=== PATIENT | female | born 1990 | race Two or more races ===

== ENCOUNTER 2017-07-24 19:04 | Emergency (ER) | payer OTHER ==
[2017-07-24] MEDS ORDERED: MORPHINE SULFATE 10 MG/ML INJ IV ONE ×3 (20:18→23:36)
[2017-07-24] MEDS ORDERED: NORMAL SALINE 1000 ML 1,000 ML IV PRN (20:18)
[2017-07-24] MEDS ORDERED: ONDANSETRON HCL INJ/PF 4 MG/2 ML SDV IV ONE ×2 (20:18→23:36)
--- NOTE | 2017-07-24 20:20 | ER Document Report ---
ED Medical Screen (RME) - General Chief Complaint: Shortness Of Breath Stated Complaint: SHORTNESS OF BREATH/HIP AND BACK PAIN Time Seen by Provider: 07/24/17 20:17 Notes: Patient states that approximately 2 weeks ago she was diagnosed in [place] with an upper respiratory infection and tonsillitis. She was started on inhalers antibiotics (Augmentin) and steroids. She states she still has a very sore throat, a hoarse voice and this morning started to feel short of breath. Patient also states that this morning when she woke up she had severe right flank pain that radiates around to the right abdomen. It is worse with any type of movement. She denies any urinary or vaginal symptoms. Denies any knowledge of being . Denies any known history of trauma. TRAVEL OUTSIDE OF THE [place] IN LAST 30 DAYS: No Past Medical History - Social History Chew tobacco use (# tins/day): No Frequency of alcohol use: Occasional Drug Abuse: None Renal/ Medical History: Denies: Hx Peritoneal Dialysis Physical Exam - Vital signs Vitals: Temp Pulse Resp BP Pulse Ox 99.1 F 99 24 H 144/96 H 95 07/24/17 19:06 07/24/17 19:06 07/24/17 19:06 07/24/17 19:06 07/24/17 19:06 Course - Vital Signs Vital signs: Temp Pulse Resp BP Pulse Ox 99.1 F 99 24 H 144/96 H 95 07/24/17 19:06 07/24/17 19:06 07/24/17 19:06 07/24/17 19:06 07/24/17 19:06
[2017-07-24 20:51] LABS: ABSOLUTE LYMPHOCYTES (AUTO) 1.6 10^3/uL (0.5-4.7); ABSOLUTE MONOCYTES (AUTO) 0.4 10^3/uL (0.1-1.4); ABSOLUTE NEUT (AUTO) 9.5 10^3/uL (1.7-8.2); BASOPHILS % (AUTO) 0.3 % (0-2); EOSINOPHILS % (AUTO) 0.2 % (0-6); LYMPHOCYTES % (AUTO) 14.1 % (13-45); MEAN CORPUSCULAR HEMOGLOBIN 28.5 pg (27.0-33.4); MEAN CORPUSCULAR HGB CONC 34.2 g/dL (32.0-36.0); MEAN CORPUSCULAR VOLUME 83 fl (80-97); MONOCYTES % (AUTO) 3.7 % (3-13); RED BLOOD COUNT 4.56 10^6/uL (3.72-5.28); RED CELL DISTRIBUTION WIDTH 15.7 % (11.5-14.0); SEGMENTED NEUTROPHILS % (AUTO) 81.7 % (42-78); WHITE BLOOD COUNT 11.7 10^3/uL (4.0-10.5)
--- NOTE | 2017-07-24 20:57 | RADIOLOGY REPORT (SQ) ---
EXAM DESCRIPTION: CHEST PA/LAT COMPLETED DATE/TIME: 07/24/2017 8:48 pm REASON FOR STUDY: sob COMPARISON: None. EXAM PARAMETERS: NUMBER OF VIEWS: two views TECHNIQUE: Digital Frontal and Lateral radiographic views of the chest acquired. RADIATION DOSE: NA LIMITATIONS: none FINDINGS: LUNGS AND PLEURA: No opacities, masses or pneumothorax. No pleural effusion. MEDIASTINUM AND HILAR STRUCTURES: No masses or contour abnormalities. HEART AND VASCULAR STRUCTURES: Heart normal size. No evidence for failure. BONES: No acute findings. HARDWARE: None in the chest. OTHER: No other significant finding. IMPRESSION: NO SIGNIFICANT RADIOGRAPHIC FINDING IN THE CHEST. TECHNICAL DOCUMENTATION: JOB ID: [id number] [employer]- All Rights Reserved
[2017-07-24 21:03] LABS: ALANINE AMINOTRANSFERASE 82 U/L (9-52); ALBUMIN 4.9 g/dL (3.5-5.0); ALKALINE PHOSPHATASE 106 U/L (38-126); ANION GAP 16 (5-19); ASPARTATE AMINO TRANSFERASE 71 U/L (14-36); BILIRUBIN,DIRECT 0.3 mg/dL (0.0-0.4); BLOOD UREA NITROGEN 15 mg/dL (7-20); CALCIUM 9.5 mg/dL (8.4-10.2); CARBON DIOXIDE 22 mmol/L (22-30); CHLORIDE 104 mmol/L (98-107); CREATININE RESULT 0.58 mg/dL (0.52-1.25); GLUCOSE 144 mg/dL (75-110); POTASSIUM 4.2 mmol/L (3.6-5.0); SODIUM 142.2 mmol/L (137-145); TOTAL PROTEIN 8.1 g/dL (6.3-8.2)
[2017-07-24] MEDS ORDERED: KETOROLAC TROMETHAMINE INJ/PF 30 MG/1 ML SDV IV ONE (21:49)
--- NOTE | 2017-07-24 21:49 | ER Document Report ---
ED GI/ - General Mode of Arrival: Ambulatory Information source: Patient TRAVEL OUTSIDE OF THE [place] IN LAST 30 DAYS: No <JERALD TNOY - Last Filed: 07/24/17 22:38> <CYNDI PALMA - Last Filed: 07/24/17 23:36> - General Chief Complaint: Shortness Of Breath Stated Complaint: SHORTNESS OF BREATH/HIP AND BACK PAIN Time Seen by Provider: 07/24/17 20:17 Notes: Patient is a 27-year-old female that presents to the emergency department today with complaints of right flank pain that began this morning. Patient states the pain radiates to her right lower quadrant. Patient was seen last week in [facility] for a cold and was prescribed antibiotics. Patient complains of still having a cough, sore throat, and hoarse voice. (JERALD TONY) - Related Data Allergies/Adverse Reactions: No Known Allergies Allergy (Unverified 07/24/17 22:37) Past Medical History - General Information source: Patient - Social History Smoking Status: Never Smoker Cigarette use (# per day): No Chew tobacco use (# tins/day): No Frequency of alcohol use: Occasional Drug Abuse: None Lives with: Family Family History: Reviewed & Not Pertinent Patient has suicidal ideation: No Patient has homicidal ideation: No Surgical Hx: Negative <JERALD TONY - Last Filed: 07/24/17 22:38> Review of Systems - Review of Systems Constitutional: No symptoms reported EENT: See HPI, Other - hoarse voice Cardiovascular: No symptoms reported Respiratory: See HPI, Cough Gastrointestinal: No symptoms reported Genitourinary: See HPI, Flank pain - right Female Genitourinary: No symptoms reported Musculoskeletal: No symptoms reported Skin: No symptoms reported Hematologic/Lymphatic: No symptoms reported Neurological/Psychological: No symptoms reported -: Yes All other systems reviewed and negative <JERALD TONY - Last Filed: 07/24/17 22:38> Physical Exam <JERALD TONY - Last Filed: 07/24/17 22:38> <CYNDI PALMA - Last Filed: 07/24/17 23:36> - Vital signs Vitals: Temp Pulse Resp BP Pulse Ox 99.1 F 99 24 H 144/96 H 95 07/24/17 19:06 07/24/17 19:06 07/24/17 19:06 07/24/17 19:06 07/24/17 19:06 - Notes Notes: Physical Exam: General: Alert, appears uncomfortable. HEENT: Normocephalic. Atraumatic. PERRL. Extraocular movements intact. Oropharynx clear. Cryptic tonsils, no exudate. Anterior cervical lymphadenopathy. Neck: Supple. Non-tender. Respiratory: No respiratory distress. Clear and equal breath sounds bilaterally. Cardiovascular: Regular rate and rhythm. Abdominal: Obese. Non-tender. No distension. Normal Bowel Sounds. Back: Right CVA tenderness with percussion. No back musculature tendernress. No deformity or step off. Extremities: Moves all four extremities. Upper extremities: Normal inspection. Normal ROM. Lower extremities: Normal inspection. No edema. Normal ROM. Neurological: Normal cognition. AAOx4. Normal speech. Psychological: Normal affect. Normal Mood. Skin: Warm. Dry. Normal color. (JERALD TONY) Course - Laboratory Result Diagrams: 07/24/17 20:31 07/24/17 20:31 <JERALD TONY - Last Filed: 07/24/17 22:38> - Laboratory Result Diagrams: 07/24/17 20:31 07/24/17 20:31 - Diagnostic Test Radiology reviewed: Image reviewed, Reports reviewed - 2.3 mm right UVJ stone with obstruction. <CYNDI PALMA - Last Filed: 07/24/17 23:36> - Re-evaluation Re-evalutation: 07/24/17 23:35 The patient does have a right UVJ stone with obstruction, she states she has a urologist she sees at [facility] and actually has an appointment with her in the near future. (CYNDI PALMA) - Vital Signs Vital signs: Temp Pulse Resp BP Pulse Ox 99.1 F 99 24 H 144/96 H 95 07/24/17 19:06 07/24/17 19:06 07/24/17 19:06 07/24/17 19:06 07/24/17 19:06 - Laboratory Laboratory results interpreted by me: 07/24/17 07/24/17 20:31 20:31 WBC 11.7 H RDW 15.7 H Seg Neutrophils % 81.7 H Absolute Neutrophils 9.5 H Glucose 144 H AST 71 H ALT 82 H Discharge <JERALD TONY - Last Filed: 07/24/17 22:38> <CYNDI PALMA - Last Filed: 07/24/17 23:36> - Discharge Clinical Impression: Ureteral stone with hydronephrosis, Ureterovesical junction (UVJ) obstruction, Viral upper respiratory tract infection with cough, Laryngitis, Sore throat ( viral) Condition: Stable Disposition: HOME, SELF-CARE Additional Instructions: Kidney Stone You are passing a kidney stone. These stones are usually due to increased calcium or uric acid concentrations in your urine. Stones within the kidney itself are not painful. The pain occurs as the stone leaves the kidney to pass down the long tube, called the ureter, leading to the bladder. If the stone is small, it will usually pass by itself. Most patients can pass the stone at home. You will usually receive medications for pain, nausea or vomiting, and sometimes a medication to assist in passing the kidney stone. However, if the pain is very severe or if vomiting prevents you from taking oral pain medications, you may need to return for further treatment. Drink three or four quarts of fluids per day. You will be given pain medication (if needed) and urine strainers. Strain all your urine to see if the stone passes. If your doctor has asked you to bring the stone in for analysis, return with the stone once it has passed. Return if pain or vomiting become severe, if you develop a high fever, if you are unable to pass your urine, or if other unusual symptoms occur. Upper Respiratory Illness: You have a viral infection of the respiratory passages -- a "cold." This common infection causes nasal congestion, drainage, and often sore throat and cough. It is caused by a virus and is highly contagious. The disease usually lasts a week or more, though the worst symptoms are usually over in 3 or 4 days. There is no "cure" for the viral infection -- it must run its course. If there is a complication, such as bacterial infection in the nose, sinuses, middle ear, or bronchial tubes, antibiotics may be required, but antibiotics won 't affect the virus. If you smoke, you should STOP!! Drink plenty of fluids. A humidifier may help. An expectorant medication or decongestant may make you more comfortable. Use acetaminophen or ibuprofen for fever or aches. See the doctor if fever persists over two or three days, if there is any significant worsening of your symptoms, or if you simply fail to improve as expected. //////////////////////////////////////////////////////////////////////////////// //////////////////////////////////////////////////////////////////////////////// ////////////////// Take the pain medications as needed. Drink lots of fluids. Strain your urine. Follow-up with your urologist as scheduled, sooner if not improving or getting worse. RETURN TO THE EMERGENCY ROOM IF ANY NEW OR WORSENING SYMPTOMS. Prescriptions: Oxycodone HCl/Acetaminophen [Percocet 5-325 mg Tablet] 1 - 2 tab PO ASDIR PRN # 15 tablet PRN Reason: Scribe Attestation: 07/24/17 21:50 I personally performed the services described in the documentation, reviewed and edited the documentation which was dictated to the scribe in my presence, and it accurately records my words and actions. (CYNDI PALMA) Scribe Documentation - Scribe Written by Jimy:: Jimy Melton, 07/24/2017, 2248 acting as scribe for :: Armida <JERALD TONY - Last Filed: 07/24/17 22:38>
[2017-07-24 21:50] LABS: APPEARANCE,URINE CLEAR; BILIRUBIN,URINE NEGATIVE (NEGATIVE); GLUCOSE, URINE NEGATIVE (NEGATIVE); KETONES,URINE NEGATIVE (NEGATIVE); LEUKOCYTE ESTERASE,URINE NEGATIVE (NEGATIVE); NITRITE,URINE NEGATIVE (NEGATIVE); PROTEIN,URINE NEGATIVE (NEGATIVE); URINE SPECIFIC GRAVITY 1.008; UROBILINOGEN,URINE NEGATIVE mg/dL (<2.0)
--- NOTE | 2017-07-24 23:18 | RADIOLOGY REPORT (SQ) ---
EXAM DESCRIPTION: CT LTD RENAL STONE PROTOCOL ON COMPLETED DATE/TIME: 07/24/2017 11:03 pm REASON FOR STUDY: Right Flank pain, history of kidney stones COMPARISON: None. TECHNIQUE: CT scan of the abdomen and pelvis performed without intravenous or oral contrast. Images reviewed with lung, soft tissue, and bone windows. Reconstructed coronal and sagittal MPR images revi ewed. All images stored on PACS. All CT scanners at this facility use dose modulation, iterative reconstruction, and/or weight based d osing when appropriate to reduce radiation dose to as low as reasonably achievable (ALARA). [facility]: Dose Right [facility]: CareDose [facility]: Dose Right [facility]: Teradose 4D [facility]: Smart Electronic Brailler RADIATION DOSE: CT Rad equipment meets quality standard of care and radiation dose reduction techniq ues were employed. CTDIvol: 15.3 mGy. DLP: 838 mGy-cm.mGy. LIMITATIONS: None. FINDINGS: LOWER CHEST: No significant findings. No nodules or infiltrates. NON-CONTRASTED LIVER, SPLEEN, ADRENALS: Evaluation limited by lack of IV contrast. No identified sign ificant masses. PANCREAS: No masses. No peripancreatic inflammatory changes. GALLBLADDER: No identified stones by CT criteria. No inflammatory changes to suggest cholecystitis. RIGHT KIDNEY AND URETER: No suspicious masses. Assessment limited by lack of IV contrast. No renal calculi are identified. An obstructing 2.3 mm in diameter calculus is identified at the level of the uterovesical junction. There is hydronephrosis of the right kidney and fullness of the right urete r to the level of the obstructing calculus. LEFT KIDNEY AND URETER: No suspicious masses. Assessment limited by lack of IV contrast. No signifi cant calcifications. No hydronephrosis or hydroureter. AORTA AND RETROPERITONEUM: No aneurysm. No retroperitoneal masses or adenopathy. BOWEL AND PERITONEAL CAVITY: No obvious masses or inflammatory changes. No free fluid. APPENDIX: Normal. PELVIS, BLADDER, AND ABDOMINAL WALL:No abnormal masses. No free fluid. Bladder is distended. BONES: No significant findings. OTHER: No other significant finding. IMPRESSION: Obstructing 2.3 mm in diameter calculus at the level of the uterovesical junction on the right. No renal calculi are identified. Other findings as noted above COMMENT: Quality ID # [id number]: Final reports with documentation of one or more dose reduction techniques (e.g., Automated exposure control, adjustment of the mA and/or kV according to patient size, use of iterative reconstruction technique) TECHNICAL DOCUMENTATION: JOB ID: [id number] [employer]- All Rights Reserved
[2017-07-24] MEDS ORDERED: HYDROCODONE/ACETAMINOPHEN 5-325 MG 6 TAB/DSPK PO PRN (23:34)
[2017-07-25 00:26] VITALS: BP 126/79
== END 2017-07-25 00:26 | disposition home or self-care (01) ==
LOC: ER 19:04
DX: N13.2 Hydronephrosis with renal and ureteral calculous obstruction (principal); J06.9 Acute upper respiratory infection, unspecified; B97.89 Other viral agents as the cause of diseases classified elsewhere; J04.0 Acute laryngitis; R06.02 Shortness of breath; J02.9 Acute pharyngitis, unspecified; R05 Cough; R10.31 Right lower quadrant pain; R49.0 Dysphonia; M25.559 Pain in unspecified hip; M54.9 Dorsalgia, unspecified
CPT/HCPCS: 96376; 99285; 96374; 96375; 36415; 84703; 85025; 81025; 80053; 81001; 71020; 76380; J1885; J2270 ×2; J2405 ×2; J7030

== ENCOUNTER 2017-10-23 02:22 | Emergency (ER) | payer OTHER ==
[2017-10-23] MEDS ORDERED: ONDANSETRON HCL INJ/PF 4 MG/2 ML SDV IV ONE (02:58)
[2017-10-23] MEDS ORDERED: HYDROMORPHONE HCL INJ/PF 2 MG/ML AMPULE IV ONE ×2 (02:58→05:58)
[2017-10-23] MEDS ORDERED: NORMAL SALINE 1000 ML 1,000 ML IV ONE (02:58)
[2017-10-23] MEDS ORDERED: KETOROLAC TROMETHAMINE INJ/PF 30 MG/1 ML SDV IV ONE ×2 (02:58→05:58)
--- NOTE | 2017-10-23 03:02 | ER Document Report ---
ED GI/ - General Chief Complaint: R flank pain, kidney stone Stated Complaint: ABDOMINAL PAIN Time Seen by Provider: 10/23/17 02:55 Notes: Patient is a 27-year-old female that comes emergency department for chief complaint of sudden onset of right mid to lower abdominal pain that radiates around her right back, she states the pain started suddenly and woke her from sleep, she states the pain is severe, stabbing, and making her nauseated. She has not vomited. She denies fevers. She denies dysuria, vaginal discharge or bleeding. She does have a history of kidney stones, has had a stent in the past as well. She states that every couple months she has the same pain when she is passing stones. She denies history of ovarian cyst. She sees local urologist at [facility] in [place]. She denies any daily medications, denies any other procedures, LMP within the past month. TRAVEL OUTSIDE OF THE [place] IN LAST 30 DAYS: No - Related Data Allergies/Adverse Reactions: No Known Allergies Allergy (Unverified 07/24/17 22:37) Past Medical History - General Information source: Patient - Social History Smoking Status: Never Smoker Frequency of alcohol use: None Drug Abuse: None Lives with: Family Family History: Reviewed & Not Pertinent Renal/ Medical History: Reports: Hx Kidney Stones. Denies: Hx Peritoneal Dialysis - Immunizations Immunizations up to date: Yes Hx Diphtheria, Pertussis, Tetanus Vaccination: Yes Review of Systems - Review of Systems Constitutional: No symptoms reported EENT: No symptoms reported Cardiovascular: No symptoms reported Respiratory: No symptoms reported Gastrointestinal: See HPI Genitourinary: See HPI Female Genitourinary: See HPI Musculoskeletal: No symptoms reported Skin: No symptoms reported Hematologic/Lymphatic: No symptoms reported Neurological/Psychological: No symptoms reported Physical Exam - Vital signs Vitals: Temp Pulse Resp BP Pulse Ox 97.9 F 81 18 124/91 H 98 10/23/17 02:28 10/23/17 02:28 10/23/17 02:28 10/23/17 02:28 10/23/17 02:28 Interpretation: Normal - General General appearance: Anxious In distress: Moderate - HEENT Head: Normocephalic, Atraumatic Eyes: Normal Conjunctiva: Normal Extraocular movements intact: Yes Eyelashes: Normal Pupils: PERRL Nasal: Normal Mouth/Lips: Normal Mucous membranes: Normal Pharynx: Normal Neck: Normal - Respiratory Respiratory status: No respiratory distress Chest status: Nontender Breath sounds: Normal. No: Decreased air movement, Wheezing Chest palpation: Normal - Cardiovascular Rhythm: Regular Heart sounds: Normal auscultation Murmur: No - Abdominal Inspection: Normal Distension: No distension Bowel sounds: Normal Tenderness: Tender - Generalized mild tenderness in the mid to right lower abdomen, no focal tenderness in the right abdominal pelvic area suggesting ovarian cyst, benign abdomen otherwise Organomegaly: No organomegaly - Back Back: Tender - Right-sided tenderness - Extremities General upper extremity: Normal inspection, Nontender, Normal ROM, Normal strength General lower extremity: Normal inspection, Nontender, Normal ROM, Normal strength - Neurological Neuro grossly intact: Yes Cognition: Normal Orientation: AAOx4 Wero Coma Scale Eye Opening: Spontaneous [place] Coma Scale Verbal: Oriented [place] Coma Scale Motor: Obeys Commands Wero Coma Scale Total: 15 Speech: Normal Motor strength normal: LUE, RUE, LLE, RLE Sensory: Normal - Psychological Associated symptoms: Normal affect, Normal mood - Skin Skin Temperature: Warm Skin Moisture: Dry Skin Color: Normal Course - Re-evaluation Re-evalutation: Patient does have presentation very suggestive of kidney stone, she is very uncomfortable, she is mild right mid to lower abdominal tenderness that radiates to the right flank which is also tender. Patient has passed stones every few months, states this is consistent with it. Abdominal exam and location of pain does not suggest ovarian torsion. No focal pain suggesting acute appendicitis. Sudden onset of symptoms. Symptoms resolved with medications. CBC, chemistry, urinalysis unremarkable. Urine has more squamous epithelials and white blood cells, only has 3 white blood cells, not consistent with infection, however urine culture was placed because of the situation. I discussed with patient. Patient states she has had tons of CAT scans, decision was made to perform a KUB instead, KUB does not show any obvious large passing stone, I suspect patient is passing a smaller stone consequently and therefore she most likely will be able to pass this without stenting. Patient already has excellent urology follow-up in [facility]. Provided with strainer, discussed follow-up, medications, strict return precautions. Patient states understanding and agreement. - Vital Signs Vital signs: Temp Pulse Resp BP Pulse Ox 98.5 F 81 18 109/76 98 10/23/17 06:34 10/23/17 02:28 10/23/17 06:01 10/23/17 06:01 10/23/17 06:01 - Laboratory Result Diagrams: 10/23/17 03:30 10/23/17 03:30 Laboratory results interpreted by me: 10/23/17 10/23/17 10/23/17 03:30 03:30 04:05 Hct 35.5 L RDW 15.3 H Carbon Dioxide 21 L AST 68 H ALT 104 H Urine Blood SMALL H Ur Leukocyte Esterase TRACE H Discharge - Discharge Clinical Impression: Lower abdominal pain, Flank pain Condition: Stable Disposition: HOME, SELF-CARE Additional Instructions: Your symptoms are consistent with the passage of a kidney stone. No concerning abnormalities are seen on your workup, the x-ray does not show a large stone that would be on passable, so I suspect you will be able to pass the stone. Use the urine strainer, drink plenty of fluids, take the pain medication as prescribed if needed, take the nausea medication if needed, take Flomax as prescribed. You can take ibuprofen as well to help pain. Avoid oxalate until your stone type is determined as discussed. Follow-up closely with your urologist within the next several days for additional evaluation and management. Return immediately if you worsen including severe worsening pain, uncontrolled vomiting, temperature of 100.4 or greater, or any other concerning symptoms. Prescriptions: Morphine Sulfate [Morphine Ir 15 Mg Tablet] 15 mg PO Q4HP PRN #20 tablet PRN Reason: Ondansetron [Zofran Odt 4 mg Tablet] 1 - 2 tab PO Q4H PRN #20 tab.rapdis PRN Reason: For Nausea/Vomiting Tamsulosin HCl [Flomax 0.4 mg Cap.sr] 0.4 mg PO DAILY #7 cap.sr.24h Forms: Treatment of Relative/Child
[2017-10-23 03:54] LABS: ABSOLUTE EOSINOPHILS # (AUTO) 0.2 10^3/uL (0.0-0.6); ABSOLUTE LYMPHOCYTES (AUTO) 2.3 10^3/uL (0.5-4.7); ABSOLUTE MONOCYTES (AUTO) 0.6 10^3/uL (0.1-1.4); ABSOLUTE NEUT (AUTO) 5.1 10^3/uL (1.7-8.2); BASOPHILS % (AUTO) 0.4 % (0-2); EOSINOPHILS % (AUTO) 1.9 % (0-6); HEMATOCRIT 35.5 % (36.0-47.0); HEMOGLOBIN 12.3 g/dL (12.0-15.5); LYMPHOCYTES % (AUTO) 27.9 % (13-45); MEAN CORPUSCULAR HEMOGLOBIN 28.4 pg (27.0-33.4); MEAN CORPUSCULAR HGB CONC 34.8 g/dL (32.0-36.0); MEAN CORPUSCULAR VOLUME 82 fl (80-97); MONOCYTES % (AUTO) 7.2 % (3-13); PLATELET COUNT 220 10^3/uL (150-450); RED BLOOD COUNT 4.35 10^6/uL (3.72-5.28); RED CELL DISTRIBUTION WIDTH 15.3 % (11.5-14.0); SEGMENTED NEUTROPHILS % (AUTO) 62.6 % (42-78); TOTAL CELLS COUNTED % (AUTO) 100 %; WHITE BLOOD COUNT 8.2 10^3/uL (4.0-10.5)
[2017-10-23 04:10] LABS: ALANINE AMINOTRANSFERASE 104 U/L (9-52); ALBUMIN 4.4 g/dL (3.5-5.0); ALKALINE PHOSPHATASE 84 U/L (38-126); ANION GAP 15 (5-19); ASPARTATE AMINO TRANSFERASE 68 U/L (14-36); BLOOD UREA NITROGEN 10 mg/dL (7-20); CALCIUM 9.1 mg/dL (8.4-10.2); CARBON DIOXIDE 21 mmol/L (22-30); CHLORIDE 107 mmol/L (98-107); GLUCOSE 89 mg/dL (75-110); SODIUM 142.5 mmol/L (137-145); TOTAL PROTEIN 7.1 g/dL (6.3-8.2)
[2017-10-23 04:48] LABS: APPEARANCE,URINE SLIGHTLY-CLOUDY; BILIRUBIN,URINE NEGATIVE (NEGATIVE); COLOR,URINE YELLOW; GLUCOSE, URINE NEGATIVE (NEGATIVE); KETONES,URINE NEGATIVE (NEGATIVE); LEUKOCYTE ESTERASE,URINE TRACE (NEGATIVE); NITRITE,URINE NEGATIVE (NEGATIVE); PROTEIN,URINE NEGATIVE (NEGATIVE); UROBILINOGEN,URINE NEGATIVE mg/dL (<2.0)
--- NOTE | 2017-10-23 05:45 | RADIOLOGY REPORT (SQ) ---
EXAM DESCRIPTION: KUB/ABDOMEN (SINGLE VIEW) CLINICAL HISTORY: still passing kidney stone? COMPARISON: None. FINDINGS: Single view of the abdomen. Moderate amount of stool. No dilated loops of large or small bowel. No definite abnormal calcifications identified overlying the kidneys. Phleboliths in the pelvis. No acute osseous abnormalities. No free intraperitoneal air. IMPRESSION: Nonobstructive bowel gas pattern. No definite calculi overlying the expected region of the kidneys.
[2017-10-23 06:34] VITALS: BP 109/76
== END 2017-10-23 06:38 | disposition home or self-care (01) ==
LOC: ER 02:22
DX: R10.31 Right lower quadrant pain (principal); R10.9 Unspecified abdominal pain; R11.0 Nausea; Z87.442 Personal history of urinary calculi; Z98.890 Other specified postprocedural states
CPT/HCPCS: 96376; 99284; 96361; 96374; 96375; 36415; 87086; 84703; 85025; 80053; 81001; 74018; J1885; J1170; J2405; J7030; 87088

== ENCOUNTER 2017-11-15 22:08 | Emergency (ER) | payer OTHER ==
[2017-11-15] MEDS ORDERED: OXYCODONE HCL IR 5 MG TABLET PO ONE (23:07)
[2017-11-15] MEDS ORDERED: ONDANSETRON 4 MG TAB.RAPDIS PO ONE (23:07)
--- NOTE | 2017-11-15 23:22 | ER Document Report ---
HPI - HPI Pain Level: 5 Notes: Patient is a 27-year-old female with no significant past medical history who presents to the ED complaining of a possible abscess to her lower vaginal area 3 days. Patient states that she has noticed a pimple to the area and tried squeezing it yesterday, but made the pain worse. Patient states that she has a very low pain tolerance. She is eating and drinking without any difficulties. She is urinating normally and having normal bowel movements. Patient has not noticed any other vaginal discharge, odor, or bleeding. She denies any drug allergies, smoking, IV drug use. Denies any headache, fever, neck pain, URI, sore throat, chest pain, palpitations, syncope, cough, shortness of breath, wheeze, dyspnea, abdominal pain, nausea/vomiting/diarrhea, urinary retention, dysuria, hematuria, loss of control of bowel or bladder, numbness/tingling, saddle anesthesia, muscle paralysis/weakness, or rash. - ROS Systems Reviewed and Negative: Yes All other systems reviewed and negative Past Medical History - Social History Smoking Status: Never Smoker Family History: Reviewed & Not Pertinent Renal/ Medical History: Reports: Hx Kidney Stones. Denies: Hx Peritoneal Dialysis - Immunizations Immunizations up to date: Yes Hx Diphtheria, Pertussis, Tetanus Vaccination: Yes Vertical Provider Document - CONSTITUTIONAL Agree With Documented VS: Yes Notes: PHYSICAL EXAMINATION: Accompanied by female nurse Sadie. GENERAL: Well-appearing, well-nourished and in no acute distress. Pt tearful. LUNGS: Breath sounds clear to auscultation bilaterally and equal. No wheezes rales or rhonchi. HEART: Regular rate and rhythm without murmurs ABDOMEN: Soft, nontender, nondistended abdomen. No guarding, no rebound. No masses appreciated. Normal bowel sounds present. CVA tenderness negative bilaterally. Female : No obvious inguinal adenopathy. External genitalia with a small superficial abscess (0.2cm diam) w/o discharge, surrounding erythema, or streaks. Musculoskeletal: FROM to passive/active. Strength 5+/5. Extremities: No cyanosis/clubbing/edema b/l. Peripheral pulses 2+. Capillary refill less than 3 seconds. NEUROLOGICAL: Normal speech, normal gait. Normal sensory, motor exams PSYCH: Normal mood, normal affect. SKIN: Warm, Dry, normal turgor, no rashes or lesions noted. - INFECTION CONTROL TRAVEL OUTSIDE OF THE [place] IN LAST 30 DAYS: No Course - Re-evaluation Re-evalutation: 11/15/17 23:37 Patient is an afebrile, well-hydrated, 27-year-old female presents to the ED with a very small labial abscess. Vitals are acceptable. PE is otherwise unremarkable. Area was thoroughly irrigated and cleansed. Incision and drainage was performed with an 18-gauge needle successfully without any complications. Wound culture was obtained. Wound dressing was placed and wound instructions reviewed. Reviewed case with Dr. Remy, no labs or imaging warranted at this time based on H&P. I do suspect that patient does have a lower threshold for pain based on H&P today. Patient was given Zofran as well as oxycodone. I will give her her first dose of Keflex and Bactrim today. Low suspicion for any sepsis, meningitis, acute abdomen, deep space infection/ abscess, necrotizing fasciitis, or other systemic emergent condition at this time. Patient to monitor symptoms closely and seek medical attention with any other acute changes. I will send her home with a prescription of the Keflex and Bactrim that she needs to finish. Recheck with your PCM/[facility] in 3-5 days. Return to the ED with any worsening/concerning symptoms otherwise as reviewed discharge. Patient is in agreement. - Vital Signs Vital signs: Temp Pulse Resp BP Pulse Ox 99.0 F 116 H 20 119/85 97 11/15/17 22:37 11/15/17 22:37 11/15/17 22:37 11/15/17 22:37 11/15/17 22:37 Procedures - Incision and Drainage Right Labia Time completed: 21:35 Type: Simple Incision Method: Incision made with needle Amount/type of drainage: scant purulent/bloody Notes: 11/15/17 23:39 Pt tolerated proc well, no complications wound cx obtained Discharge - Discharge Clinical Impression: Abscess of labia Condition: Stable Disposition: HOME, SELF-CARE Instructions: Abscess ([facility]), Cephalexin ([facility]), Trimethoprim-Sulfa ([facility]) Additional Instructions: Keep the skin clean Wash with soap and water Tylenol/ibuprofen if needed Triple antibiotic ointment daily Epsom salt soaks/Sitz baths Take medication as directed Monitor for any worsening symptoms Recheck with your PCM/OBGYN in 3-5 days Return to the ED with any worsening symptoms and/or development of fever, headache, chest pain, palpitations, syncope, shortness of breath, trouble breathing, abdominal pain, n/v/d, abscess, purulent discharge, red streaks, worsening swelling, or other worsening symptoms that are concerning to you. Prescriptions: Cephalexin Monohydrate [Keflex 500 mg Capsule] 500 mg PO BID #20 capsule Ondansetron [Zofran Odt 4 mg Tablet] 1 - 2 tab PO Q4H PRN #15 tab.rapdis PRN Reason: For Nausea/Vomiting Oxycodone HCl/Acetaminophen [Oxycodone-Acetaminophen 5-325] 1 each PO QID #12 tablet Sulfamethoxazole/Trimethoprim [Bactrim Ds Tablet] 1 each PO BID #20 tablet [facility]errals: [facility] [Provider Group] - Follow up in 3-5 days GENET GARZA MD [ACTIVE STAFF] - Follow up in 3-5 days
[2017-11-15] MEDS ORDERED: CEPHALEXIN 500 MG CAPSULE PO ONE (23:36)
[2017-11-15] MEDS ORDERED: SULFAMETHOXAZOLE/TRIMETHOPRIM 800-160 MG TABLET PO ONE (23:36)
[2017-11-16] VITALS: BP 120/69
== END 2017-11-16 00:10 | disposition home or self-care (01) ==
LOC: ER 22:08
DX: N76.4 Abscess of vulva (principal)
CPT/HCPCS: 99283; 87070; 87205; 87075; 87077; 56405; S0119

== ENCOUNTER → 2017-11-21 | Outpatient (CLI) | payer OTHER ==
[2017-11-21 13:48] LABS: FREE T4 (FREE THYROXINE) 1.12 ng/dL (0.78-2.19)
[2017-11-21 14:02] LABS: THYROID STIMULATING HORMONE 0.83 uIU/mL (0.47-4.68)
== END ==
LOC: LAB 12:40
PROVIDERS: ATTEND Otolaryngology
DX: T73.3XXA Exhaustion due to excessive exertion, initial encounter (principal)
CPT/HCPCS: 36415; 84439; 84443

== ENCOUNTER 2018-03-22 22:35 | Emergency (ER) | payer OTHER ==
[2018-03-23] MEDS ORDERED: MORPHINE SULFATE 10 MG/ML INJ IV ONE (01:13)
[2018-03-23] MEDS ORDERED: KETOROLAC TROMETHAMINE INJ/PF 30 MG/1 ML SDV IV ONE (01:13)
--- NOTE | 2018-03-23 01:17 | ER Document Report ---
ED GI/ - General Chief Complaint: Flank Pain Stated Complaint: FLANK PAIN Time Seen by Provider: 03/23/18 01:02 Notes: The patient is a 27-year-old female, past medical history frequent kidney stones that has required a stent in the past for retrieval, presents with bilateral flank pain and nausea. She denies fevers, vomiting, dysuria, hematuria, vaginal discharge, chest pain, shortness of breath, rash or headache. TRAVEL OUTSIDE OF THE [place] IN LAST 30 DAYS: No - Related Data Allergies/Adverse Reactions: No Known Allergies Allergy (Verified 03/22/18 22:39) Past Medical History - General Information source: Patient - Social History Smoking Status: Unknown if Ever Smoked Family History: Reviewed & Not Pertinent Renal/ Medical History: Reports: Hx Kidney Stones. Denies: Hx Peritoneal Dialysis - Immunizations Immunizations up to date: Yes Hx Diphtheria, Pertussis, Tetanus Vaccination: Yes Review of Systems - Review of Systems Notes: REVIEW OF SYSTEMS: CONSTITUTIONAL: -fevers, -chills EENT: -eye pain, -difficulty swallowing, -nasal congestion CARDIOVASCULAR: -chest pain, -syncope. RESPIRATORY: -cough, -SOB GASTROINTESTINAL: -abdominal pain, +nausea, -vomiting, -diarrhea GENITOURINARY: -dysuria, -hematuria MUSCULOSKELETAL: +B/L flank pain, -neck pain SKIN: -rash or skin lesions. HEMATOLOGIC: -easy bruising or bleeding. LYMPHATIC: -swollen, enlarged glands. NEUROLOGICAL: -altered mental status or loss of consciousness, -headache, - neurologic symptoms PSYCHIATRIC: -anxiety, -depression. ALL OTHER SYSTEMS REVIEWED AND NEGATIVE. Physical Exam - Vital signs Vitals: Temp Pulse Resp BP Pulse Ox 98.5 F 91 16 135/78 H 96 03/22/18 22:55 03/22/18 22:55 03/22/18 22:55 03/22/18 22:55 03/22/18 22:55 - Notes Notes: PHYSICAL EXAMINATION: GENERAL: Uncomfortable. HEAD: Atraumatic, normocephalic. EYES: Pupils equal round and reactive to light, extraocular movements intact, sclera anicteric, conjunctiva are normal. ENT: nares patent, oropharynx clear without exudates. Moist mucous membranes. NECK: Normal range of motion, supple without lymphadenopathy LUNGS: Breath sounds clear to auscultation bilaterally and equal. No wheezes rales or rhonchi. HEART: Regular rate and rhythm without murmurs BACK: No CVA tenderness. ABDOMEN: Soft, nontender, normoactive bowel sounds. No guarding, no rebound. No masses appreciated. EXTREMITIES: Normal range of motion, no pitting or edema. No cyanosis. NEUROLOGICAL: Cranial nerves grossly intact. Normal speech, normal gait. Normal sensory and motor exams. PSYCH: Normal mood, normal affect. SKIN: Warm, Dry, normal turgor, no rashes or lesions noted. Course - Re-evaluation Re-evalutation: Patient with bilateral flank pain, similar to her prior kidney stones. After Toradol and morphine, she feels much better. CT abdomen and pelvis performed, which does not show any acute process. Her urinalysis is 8 WBCs with large leuk esterase and it appears contaminated with a large amount of squamous cells. Patient is not having any signs of a urinary tract infection or pyelonephritis. Urine culture sent and will hold off on treating at this time. Given strict return precautions and she understands. - Vital Signs Vital signs: Temp Pulse Resp BP Pulse Ox 98.5 F 91 16 135/78 H 96 03/22/18 22:55 03/22/18 22:55 03/22/18 22:55 03/22/18 22:55 03/22/18 22:55 - Laboratory Result Diagrams: 03/23/18 01:05 03/23/18 01:05 Laboratory results interpreted by me: 03/23/18 03/23/18 03/23/18 00:05 01:05 01:05 Hgb 11.8 L Hct 33.9 L RDW 15.2 H AST 83 H ALT 112 H Urine Blood SMALL H Ur Leukocyte Esterase MODERATE H - Diagnostic Test Radiology reviewed: Image reviewed, Reports reviewed Radiology results interpreted by me: CT A/P: NAD Discharge - Discharge Clinical Impression: Bilateral flank pain Condition: Stable Disposition: HOME, SELF-CARE Additional Instructions: There is no evidence of large kidney stones on your CAT scan today. Take anti- inflammatories, such as Motrin or Naprosyn, to help with any potential kidney stones and to help if you are having back strain. Take Zofran for any nausea or vomiting. Follow-up with your urologist for further evaluation and treatment. Return to the ER if you notice fevers or any worsening intractable pain. Flank Pain We weren't able to prove an exact cause for your flank pain. Pain in the flank can be caused by a muscle strain or spasm. Sometimes a kidney stone causes pain, but can't be found on our tests. Infection in the kidney should be evident on a urine test. Early shingles can occasionally cause flank pain, without the rash that proves the diagnosis. On rare occasions, disease of the pancreas, aorta, spleen, or colon can create pain in the flank. At this time, there's no evidence of a dangerous condition, and it seems safe for you to be at home. If the pain goes away and does not come back, no further testing will be needed. If pain persists, or becomes more severe, we may need to repeat some tests or order additional new testing. Blood in the urine, urgency to urinate frequently, and pain that radiates to the groin can indicate a kidney stone. Fever may mean that the pain is due to infection, either of the kidney or the colon (diverticulitis). If your pain is early shingles, you should develop an eruption of blisters in the painful area within a few days. Call the doctor or return if you have pain that is spreading or becoming more severe, pain that does not resolve with time, fever, or any other new symptoms. Prescriptions: Ondansetron [Zofran Odt 4 mg Tablet] 1 - 2 tab PO Q4H PRN #15 tab.rapdis PRN Reason: For Nausea/Vomiting Forms: Elevated Blood Pressure Referrals: [facility] [Provider Group] - Follow up as needed
[2018-03-23 01:31] LABS: ABSOLUTE BASOPHILS # (AUTO) 0.1 10^3/uL (0.0-0.2); ABSOLUTE EOSINOPHILS # (AUTO) 0.2 10^3/uL (0.0-0.6); ABSOLUTE LYMPHOCYTES (AUTO) 2.8 10^3/uL (0.5-4.7); ABSOLUTE MONOCYTES (AUTO) 0.6 10^3/uL (0.1-1.4); ABSOLUTE NEUT (AUTO) 5.4 10^3/uL (1.7-8.2); BASOPHILS % (AUTO) 0.7 % (0-2); EOSINOPHILS % (AUTO) 1.9 % (0-6); HEMATOCRIT 33.9 % (36.0-47.0); HEMOGLOBIN 11.8 g/dL (12.0-15.5); MEAN CORPUSCULAR HGB CONC 34.8 g/dL (32.0-36.0); MEAN CORPUSCULAR VOLUME 81 fl (80-97); MONOCYTES % (AUTO) 6.7 % (3-13); PLATELET COUNT 247 10^3/uL (150-450); RED BLOOD COUNT 4.21 10^6/uL (3.72-5.28); RED CELL DISTRIBUTION WIDTH 15.2 % (11.5-14.0); SEGMENTED NEUTROPHILS % (AUTO) 59.7 % (42-78); TOTAL CELLS COUNTED % (AUTO) 100 %; WHITE BLOOD COUNT 9.1 10^3/uL (4.0-10.5)
[2018-03-23 01:47] LABS: ALANINE AMINOTRANSFERASE 112 U/L (9-52); ALBUMIN 4.5 g/dL (3.5-5.0); ALKALINE PHOSPHATASE 112 U/L (38-126); ANION GAP 14 (5-19); ASPARTATE AMINO TRANSFERASE 83 U/L (14-36); BILIRUBIN,DIRECT 0.2 mg/dL (0.0-0.4); BILIRUBIN,TOTAL 1.1 mg/dL (0.2-1.3); BLOOD UREA NITROGEN 10 mg/dL (7-20); CALCIUM 9.6 mg/dL (8.4-10.2); CARBON DIOXIDE 23 mmol/L (22-30); CHLORIDE 107 mmol/L (98-107); GLUCOSE 94 mg/dL (75-110); SODIUM 143.5 mmol/L (137-145); TOTAL PROTEIN 7.8 g/dL (6.3-8.2)
[2018-03-23 02:04] LABS: APPEARANCE,URINE SLIGHTLY-CLOUDY; BILIRUBIN,URINE NEGATIVE (NEGATIVE); CALCIUM OXALATE CRYSTALS,URINE MODERATE /HPF; COLOR,URINE YELLOW; GLUCOSE, URINE NEGATIVE (NEGATIVE); KETONES,URINE NEGATIVE (NEGATIVE); LEUKOCYTE ESTERASE,URINE MODERATE (NEGATIVE); NITRITE,URINE NEGATIVE (NEGATIVE); PROTEIN,URINE NEGATIVE (NEGATIVE); URINE SPECIFIC GRAVITY 1.021; UROBILINOGEN,URINE NEGATIVE mg/dL (<2.0)
--- NOTE | 2018-03-23 02:30 | RADIOLOGY REPORT (SQ) ---
EXAM DESCRIPTION: CT ABDOMEN WITHOUT IV CONTRAST COMPLETED DATE/TME: 03/23/2018 01:13 CLINICAL HISTORY: B/L flank pain, hematuria, Hx large stones COMPARISON: 07/24/2017 TECHNIQUE: CT of the abdomen and pelvis without IV contrast. Evaluation of the solid organs and vasculature is suboptimal due to lack of IV contrast. DLP: 997.53 mGy-cm FINDINGS: Lung Bases: The visualized lung bases are clear. Bones: No destructive bone lesions identified. Abdomen: Liver: The liver has normal size and density. Gallbladder: No calcified gallstones. Spleen, Pancreas, and Adrenal Glands: The spleen, pancreas, and adrenal glands are unremarkable. Kidneys: The kidneys have normal size and contour without evidence of hydronephrosis. No obstructing ureteral calculi. Vasculature: The aorta and IVC have normal caliber and position. Stomach: The stomach and duodenum have normal course. Other: No free intraperitoneal air. No free fluid or lymphadenopathy. Pelvis: Bladder: Urinary bladder is unremarkable. Bowel: No dilated loops of large or small bowel. Appendix: Normal appendix. Pelvis: No large adnexal masses. Uterus is not enlarged. IMPRESSION: 1. No acute inflammatory or obstructive process identified. This exam was performed according to our departmental dose-optimization program, which includes automated exposure control, adjustment of the mA and/or kV according to patient size and/or use of iterative reconstruction technique.
[2018-03-23 03:42] VITALS: BP 106/69
== END 2018-03-23 03:33 | disposition home or self-care (01) ==
LOC: ER 22:35
DX: R10.9 Unspecified abdominal pain (principal); R11.0 Nausea; Z87.442 Personal history of urinary calculi
CPT/HCPCS: 99284; 36415; 87086; 83690; 84703; 85025; 87088; 80053; 81001; 76380; J1885; J2270

== ENCOUNTER → 2018-07-02 | Outpatient (CLI) | payer OTHER ==
--- NOTE | 2018-07-03 15:34 | RADIOLOGY REPORT (SQ) ---
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 TECHNIQUE: Dynamic and static woodward-scale images acquired of the thyroid gland. Selected additional c olor/power Doppler images recorded. All images stored to PACS. LIMITATIONS: None. FINDINGS: RIGHT LOBE: Normal size, 4.2 cm. Homogeneous echotexture. No cystic or solid masses. LEFT LOBE: Normal size, 4.1 cm. Homogeneous echotexture. No cystic or solid masses. ISTHMUS: Normal size, 2 mm. Homogeneous echotexture. No cystic or solid masses. OTHER: No other significant finding. IMPRESSION: NORMAL THYROID ULTRASOUND. TECHNICAL DOCUMENTATION: JOB ID: [id number] [employer]- All Rights Reserved Reading location - IP/workstation name: [email or web address]
== END ==
LOC: RAD 19:56
PROVIDERS: ATTEND Student in an Organized Health Care Education/Training Program
DX: E04.9 Nontoxic goiter, unspecified (principal)
CPT/HCPCS: 76536

== ENCOUNTER → 2019-04-08 | Outpatient (CLI) | payer OTHER ==
--- NOTE | 2019-04-08 12:39 | RADIOLOGY REPORT (SQ) ---
EXAM DESCRIPTION: SACROILIAC JOINTS 3 OR MORE COMPLETED DATE/TIME: 04/08/2019 9:21 am REASON FOR STUDY: MULTIFACTORIAL LOW BACK PAIN COMPARISON: None. NUMBER OF VIEWS: Three views. TECHNIQUE: AP and oblique views of the sacroiliac joints. LIMITATIONS: None. FINDINGS: MINERALIZATION: Normal. BONES: No acute fracture or dislocation. No worrisome bone lesions. No significant osteophytes. JOINTS: The sacroiliac joints are patent. No unusual widening, sclerosis, or fusion. SOFT TISSUES: No soft tissue swelling. No radio-opaque foreign body. OTHER: No other significant finding. IMPRESSION: NORMAL STUDY OF THE SACROILIAC JOINTS. TECHNICAL DOCUMENTATION: JOB ID: [id number] [employer]- All Rights Reserved Reading location - IP/workstation name: [email or web address]
--- NOTE | 2019-04-08 12:39 | RADIOLOGY REPORT (SQ) ---
EXAM DESCRIPTION: HIP RIGHT AP/LATERAL COMPLETED DATE/TIME: 04/08/2019 9:21 am REASON FOR STUDY: R HIP PAIN COMPARISON: None. NUMBER OF VIEWS: Two views. TECHNIQUE: AP pelvis and additional frog-leg view of the right hip. LIMITATIONS: None. FINDINGS: MINERALIZATION: Normal. RIGHT HIP: No fracture or dislocation. No worrisome bone lesions. No contour deformity. No joint sp govind narrowing. LEFT HIP: No fracture or dislocation. No worrisome bone lesions. PUBIS AND ISCHIUM: No fracture. PELVIS: No fracture. SACRUM: No fracture or dislocation. No worrisome bone lesions. LOWER LUMBAR SPINE: No fracture or dislocation. No worrisome bone lesions. No significant disc disea se. SOFT TISSUES: No findings. OTHER: No other significant finding. IMPRESSION: NEGATIVE STUDY OF THE RIGHT HIP. NO EXPLANATION FOR PAIN. TECHNICAL DOCUMENTATION: JOB ID: [id number] [employer]- All Rights Reserved Reading location - IP/workstation name: [email or web address]
--- NOTE | 2019-04-08 12:40 | RADIOLOGY REPORT (SQ) ---
EXAM DESCRIPTION: L SPINE WHOLE COMPLETED DATE/TIME: 04/08/2019 9:21 am REASON FOR STUDY: MULTIFACTORIAL LOW BACK PAIN COMPARISON: None. NUMBER OF VIEWS: Five views including obliques. TECHNIQUE: AP, lateral, oblique, and sacral radiographic images acquired of the lumbar spine. LIMITATIONS: None. FINDINGS: MINERALIZATION: Normal. SEGMENTATION: Normal. No transitional anatomy. ALIGNMENT: Normal. VERTEBRAE: Maintained height. No fracture or worrisome bone lesion. DISCS: Preserved height. No significant osteophytes or end plate irregularity. POSTERIOR ELEMENTS: Pedicles and facets are intact. No pars defect or posterior arch defects. HARDWARE: None in the spine. PARASPINAL SOFT TISSUES: Normal. PELVIS: Intact as visualized. No fractures or worrisome bone lesions. SI joints intact. OTHER: No other significant finding. IMPRESSION: NORMAL 5 VIEW LUMBAR SPINE. TECHNICAL DOCUMENTATION: JOB ID: [id number] [employer]- All Rights Reserved Reading location - IP/workstation name: [email or web address]
== END ==
LOC: RAD 08:28
PROVIDERS: ATTEND Pain Medicine Pain Medicine
DX: M54.5 Low back pain (principal); M25.561 Pain in right knee
CPT/HCPCS: 72110; 72202

== ENCOUNTER 2019-07-05 22:43 | Emergency (ER) | payer OTHER ==
[2019-07-06] MEDS ORDERED: KETOROLAC TROMETHAMINE INJ/PF 30 MG/1 ML SDV IV ONE (00:58)
[2019-07-06] MEDS ORDERED: ONDANSETRON HCL INJ/PF 4 MG/2 ML SDV IV ONE (00:58)
[2019-07-06 01:19] LABS: ALBUMIN 4.8 g/dL (3.5-5.0); ALKALINE PHOSPHATASE 99 U/L (38-126); ANION GAP 11 (5-19); ASPARTATE AMINO TRANSFERASE 38 U/L (14-36); BILIRUBIN,DIRECT 0.1 mg/dL (0.0-0.4); BILIRUBIN,TOTAL 1.4 mg/dL (0.2-1.3); BLOOD UREA NITROGEN 14 mg/dL (7-20); CALCIUM 10.1 mg/dL (8.4-10.2); CARBON DIOXIDE 24 mmol/L (22-30); CHLORIDE 106 mmol/L (98-107); GLUCOSE 122 mg/dL (75-110); POTASSIUM 4.6 mmol/L (3.6-5.0); TOTAL PROTEIN 8.5 g/dL (6.3-8.2)
[2019-07-06 01:40] LABS: ABSOLUTE BASOPHILS # (AUTO) 0.1 10^3/uL (0.0-0.2); ABSOLUTE EOSINOPHILS # (AUTO) 0.2 10^3/uL (0.0-0.6); ABSOLUTE LYMPHOCYTES (AUTO) 2.6 10^3/uL (0.5-4.7); ABSOLUTE MONOCYTES (AUTO) 0.5 10^3/uL (0.1-1.4); ABSOLUTE NEUT (AUTO) 5.6 10^3/uL (1.7-8.2); BASOPHILS % (AUTO) 0.6 % (0-2); EOSINOPHILS % (AUTO) 2.1 % (0-6); HEMATOCRIT 34.6 % (36.0-47.0); HEMOGLOBIN 11.8 g/dL (12.0-15.5); MEAN CORPUSCULAR HEMOGLOBIN 27.9 pg (27.0-33.4); MEAN CORPUSCULAR HGB CONC 34.3 g/dL (32.0-36.0); MEAN CORPUSCULAR VOLUME 82 fl (80-97); MONOCYTES % (AUTO) 5.6 % (3-13); PLATELET COUNT 271 10^3/uL (150-450); RED BLOOD COUNT 4.24 10^6/uL (3.72-5.28); RED CELL DISTRIBUTION WIDTH 15.1 % (11.5-14.0); SEGMENTED NEUTROPHILS % (AUTO) 62.7 % (42-78); TOTAL CELLS COUNTED % (AUTO) 100 %
[2019-07-06] MEDS ORDERED: NORMAL SALINE 1000 ML 1,000 ML IV ONE (01:41)
[2019-07-06] MEDS ORDERED: MORPHINE SULFATE 10 MG/ML INJ IV ONE (01:41)
[2019-07-06 01:45] LABS: APPEARANCE,URINE CLEAR; BILIRUBIN,URINE NEGATIVE (NEGATIVE); COLOR,URINE YELLOW; GLUCOSE, URINE NEGATIVE (NEGATIVE); KETONES,URINE NEGATIVE (NEGATIVE); LEUKOCYTE ESTERASE,URINE NEGATIVE (NEGATIVE); NITRITE,URINE NEGATIVE (NEGATIVE); PROTEIN,URINE NEGATIVE (NEGATIVE); URINE SPECIFIC GRAVITY 1.024; UROBILINOGEN,URINE NEGATIVE mg/dL (<2.0)
--- NOTE | 2019-07-06 01:48 | ER Document Report ---
ED GI/ - General Chief Complaint: Flank Pain Stated Complaint: FLANK PAIN Time Seen by Provider: 07/06/19 01:16 Mode of Arrival: Ambulatory Information source: Patient Notes: Ms. Le is a 29yo F w/ PMH nephrolithiasis resenting to the ED for left-sided flank pain and nausea. Patient states that the pain all began yesterday but acutely worsened this evening. The flank pain is primarily located on the left and although she has a small amount of pain bilaterally. Patient endorses subj ective chills without any fevers. Nausea with some dry the evening however no episodes of vomiting. No decreased p.o. intake. No diarrhea. Patient endorses some mild suprapubic tenderness palpation. No increased urinary frequency, dysuria, foul-smelling urine, or hesitancy/urgency. Patient endorses previous history of kidney stones last one being a proximately 1 year ago. TRAVEL OUTSIDE OF THE [place] IN LAST 30 DAYS: No - Related Data Allergies/Adverse Reactions: No Known Allergies Allergy (Verified 03/22/18 22:39) Past Medical History - Social History Smoking Status: Never Smoker Chew tobacco use (# tins/day): No Frequency of alcohol use: None Drug Abuse: None Family History: Reviewed & Not Pertinent Patient has suicidal ideation: No Patient has homicidal ideation: No Pulmonary Medical History: Reports: Hx Pneumonia Renal/ Medical History: Reports: Hx Kidney Stones. Denies: Hx Peritoneal Dialysis - Immunizations Immunizations up to date: Yes Hx Diphtheria, Pertussis, Tetanus Vaccination: Yes Review of Systems - Review of Systems Constitutional: See HPI EENT: No symptoms reported Cardiovascular: No symptoms reported Respiratory: No symptoms reported Gastrointestinal: See HPI Genitourinary: See HPI Female Genitourinary: No symptoms reported Musculoskeletal: No symptoms reported Skin: No symptoms reported Hematologic/Lymphatic: No symptoms reported Neurological/Psychological: No symptoms reported Physical Exam - Vital signs Vitals: Temp Pulse Resp BP Pulse Ox 98.5 F 78 18 137/89 H 99 07/05/19 23:10 07/05/19 23:10 07/05/19 23:10 07/05/19 23:10 07/05/19 23:10 Interpretation: Normal - General General appearance: Appears well, Alert - HEENT Head: Normocephalic, Atraumatic Eyes: Normal Pupils: PERRL - Respiratory Respiratory status: No respiratory distress Chest status: Nontender Breath sounds: Normal Chest palpation: Normal - Cardiovascular Rhythm: Regular Heart sounds: Normal auscultation Murmur: No - Abdominal Inspection: Normal Distension: No distension Bowel sounds: Normal Tenderness: Other - Mild suprapubic TTP. No rebound or guarding Organomegaly: No organomegaly - Back Back: Normal, Nontender, CVA tenderness Notes: mild on L. Not true CVA TTP to indirect percussion - Extremities General upper extremity: Normal inspection, Nontender, Normal color, Normal ROM, Normal temperature General lower extremity: Normal inspection, Nontender, Normal color, Normal ROM, Normal temperature, Normal weight bearing. No: Abbey's sign - Neurological Neuro grossly intact: Yes Cognition: Normal Orientation: AAOx4 Reading Coma Scale Eye Opening: Spontaneous Reading Coma Scale Verbal: Oriented Reading Coma Scale Motor: Obeys Commands Wero Coma Scale Total: 15 Speech: Normal Motor strength normal: LUE, RUE, LLE, RLE Sensory: Normal - Psychological Associated symptoms: Normal affect, Normal mood - Skin Skin Temperature: Warm Skin Moisture: Dry Skin Color: Normal Course - Re-evaluation Re-evalutation: Patient is generally well-appearing and nontoxic. Initial vitals within normal limits. Differential diagnosis includes nephrolithiasis, pyelonephritis, UTI, muscular strain Patient received Toradol and Zofran from triage. Ordered for IV fluids. Concern for possible nephrolithiasis given his her known history. Clinically she does not appear dehydrated. Labs and urine were ordered from triage. CBC does not show significant leukocytosis or left shift. H&H is stable. CMP notable for mildly elevated total bili however is just outside the normal range and is also otherwise unremarkable. UA shows small amount of blood consistent with possible nephrolithiasis. No evidence of infection. Patient denies any abnormal muscular movements or lifting heavy object to suggest muscular strain. Given that she is afebrile and does not truly have CVA tenderness to indirect percussion, low suspicion for pyelonephritis. Patient was given morphine for pain control upon evaluation. 07/06/19 03:38 Given that there was blood in the urine, CT Noncon was ordered to assess for possible nephrolithiasis. 07/06/19 05:05 CT noncontrast of the abdomen pelvis is negative for nephrolithiasis. Patient feels significantly improved after Toradol, Zofran IV fluids. Tolerating p.o. without issues. Patient instructed to continue using a bland diet. Also recommended she apply heat and use Motrin as needed for the flank pain. Given return precautions. Possibly muscular strain even though there is no known trauma or heavy lifting per patient. - Vital Signs Vital signs: Temp Pulse Resp BP Pulse Ox 98.5 F 78 18 137/89 H 99 07/05/19 23:10 07/05/19 23:10 07/05/19 23:10 07/05/19 23:10 07/05/19 23:10 - Laboratory Result Diagrams: 07/06/19 01:30 07/06/19 00:51 Laboratory results interpreted by me: 07/06/19 07/06/19 07/06/19 00:51 00:51 01:30 Hgb 11.8 L Hct 34.6 L RDW 15.1 H Glucose 122 H Total Bilirubin 1.4 H AST 38 H Total Protein 8.5 H Urine Blood SMALL H Discharge - Discharge Clinical Impression: Left flank pain, Muscle strain Condition: Good Disposition: HOME, SELF-CARE Instructions: Flank Pain ([facility]), Muscle Strain ([facility]) Additional Instructions: I would recommend that you take 800 mg of Motrin every 6-8 hours as needed for pain. I would also recommend you apply heat to the area. Follow-up with your primary care doctor as needed. Return to ED if your pain worsens, you are unable to keep down food or drink, you develop a fever, or any other concerning symptoms.
--- NOTE | 2019-07-06 04:29 | RADIOLOGY REPORT (SQ) ---
CT abdomen and pelvis without contrast on 07/06/2019 at 3:37 AM CLINICAL INDICATION: Bilateral back pain TECHNIQUE: Multiple axial images are obtained throughout the abdomen and pelvis without the administration of contrast. This exam was performed according to our departmental dose-optimization program, which includes automated exposure control, adjustment of the mA and/or kV according to patient size and/or use of iterative reconstruction technique. Total DLP is 909.64 mGy*cm. COMPARISON: 03/23/2018 FINDINGS: Abdomen: The lung bases are clear. There are no renal or ureteral stones and no hydronephrosis. A few calcified phleboliths are noted in the right pelvis. The unenhanced solid abdominal organs are unremarkable. There is no abdominal adenopathy. There is no free fluid or free air within the abdomen. The abdominal portion of the GI tract is unremarkable. Pelvis: There is no free fluid in the pelvis. Pelvic organs appear unremarkable by CT. There is no pelvic adenopathy. Pelvic portion of the GI tract including the appendix is unremarkable. No bony abnormality is noted. IMPRESSION: No acute abnormality.
[2019-07-06 05:20] VITALS: BP 116/74
== END 2019-07-06 05:20 | disposition home or self-care (01) ==
LOC: ER 22:43
DX: S39.011A Strain of muscle, fascia and tendon of abdomen, initial encounter (principal); R10.9 Unspecified abdominal pain; R11.2 Nausea with vomiting, unspecified; R68.83 Chills (without fever); Z87.442 Personal history of urinary calculi; X58.XXXA Exposure to other specified factors, initial encounter
CPT/HCPCS: 36415; 83690; 84703; 85025; 80053; 81001; 74176; J1885; J2270; J2405; J7030; 96361; 96374; 96375; 99284

== ENCOUNTER 2019-09-02 18:30 | Emergency (ER) | payer SELFPAY ==
[2019-09-02] MEDS ORDERED: IPRATROPIUM/ALBUTEROL 0.5-2.5 MG/3 ML AMPUL NEB ONE (19:49)
--- NOTE | 2019-09-02 19:51 | ER Document Report ---
ED Medical Screen (RME) - General Chief Complaint: Flu Symptoms Stated Complaint: CHEST PAIN Time Seen by Provider: 09/02/19 19:46 Mode of Arrival: Ambulatory Notes: Patient presents complaining of sore throat, cough with difficulty breathing for the past 5 days. Patient reports chest pain that she described as tightness and feeling clammy. Patient does complain of nausea as well. Patient does report recent long distance travel from [place]. I have greeted and performed a rapid initial assessment of this patient. A comprehensive ED assessment and evaluation of the patient, analysis of test results and completion of the medical decision making process will be conducted by additional ED providers. TRAVEL OUTSIDE OF THE [place] IN LAST 30 DAYS: No - Related Data Allergies/Adverse Reactions: No Known Allergies Allergy (Verified 09/02/19 19:41) Past Medical History Pulmonary Medical History: Reports: Hx Pneumonia Renal/ Medical History: Reports: Hx Kidney Stones. Denies: Hx Peritoneal Dialysis - Immunizations Immunizations up to date: Yes Hx Diphtheria, Pertussis, Tetanus Vaccination: Yes Physical Exam - Vital signs Vitals: Temp Pulse Resp BP Pulse Ox 98.8 F 89 20 108/75 100 09/02/19 19:27 09/02/19 19:27 09/02/19 19:27 09/02/19 19:27 09/02/19 19:27 - Respiratory Respiratory status: No respiratory distress Chest status: Pain with cough Breath sounds: Nonproductive cough, Rhonchi Course - Vital Signs Vital signs: Temp Pulse Resp BP Pulse Ox 98.8 F 89 20 108/75 100 09/02/19 19:27 09/02/19 19:27 09/02/19 19:27 09/02/19 19:27 09/02/19 19:27
--- NOTE | 2019-09-02 20:12 | ER Document Report ---
ED General - General Chief Complaint: Flu Symptoms Stated Complaint: CHEST PAIN Time Seen by Provider: 09/02/19 19:46 Mode of Arrival: Ambulatory Notes: Patient is a 29-year-old female that comes to the emergency department for chief complaint of sore throat, chills, and worsening productive cough for most a week now. She reports intermittent wheezing with cough as well. She also states she woke up this morning with both eyes crusted shut. She has not had the influenza vaccine. She denies any obvious sick contacts but she recently did travel back from [place]. LMP the past month. She takes no daily medications, denies any diagnosed past medical history other than kidney stones and bronchitis/pneumonia where she required a nebulizer and albuterol treatments, she is out of the albuterol now. She denies smoking but states she has had a lot of secondhand smoke. She denies any recreational drugs, denies alcohol. Family at bedside. TRAVEL OUTSIDE OF THE [place] IN LAST 30 DAYS: No - Related Data Allergies/Adverse Reactions: No Known Allergies Allergy (Verified 09/02/19 19:41) Past Medical History - General Information source: Patient - Social History Smoking Status: Never Smoker Frequency of alcohol use: None Drug Abuse: None Lives with: Spouse/Significant other Family History: Reviewed & Not Pertinent Patient has suicidal ideation: No Patient has homicidal ideation: No Pulmonary Medical History: Reports: Hx Pneumonia Renal/ Medical History: Reports: Hx Kidney Stones. Denies: Hx Peritoneal Dialysis Surgical Hx: Negative - Immunizations Immunizations up to date: Yes Hx Diphtheria, Pertussis, Tetanus Vaccination: Yes Review of Systems - Review of Systems Constitutional: See HPI EENT: See HPI Cardiovascular: See HPI Respiratory: See HPI Gastrointestinal: No symptoms reported Genitourinary: No symptoms reported Female Genitourinary: No symptoms reported Musculoskeletal: No symptoms reported Skin: No symptoms reported Hematologic/Lymphatic: No symptoms reported Neurological/Psychological: No symptoms reported Physical Exam - Vital signs Vitals: Temp Pulse Resp BP Pulse Ox 98.8 F 89 20 108/75 100 09/02/19 19:27 09/02/19 19:27 09/02/19 19:27 09/02/19 19:27 09/02/19 19:27 - Notes Notes: GENERAL: Alert, interacts well. No acute distress. HEAD: Normocephalic, atraumatic. EYES: Pupils equal, round, and reactive to light. Extraocular movements intact. Mild erythema of both sclera, normal eyes otherwise, normal eyelids, no discharge ENT: Oral mucosa moist, tongue midline. Enlarged tonsils which are possibly baseline, erythema of the tonsils without exudates, normal uvula, no evidence of abscess.. Airway patent. Mild nasal congestion, with borderline effusion on the right side no nasal septal hematoma, TM's intact. NECK: Full range of motion. Supple. Trachea midline. LUNGS: Frequent congested cough, clear lungs without wheezing, rales, rhonchi. No tachypnea or respiratory distress. HEART: Regular rate and rhythm. No murmur ABDOMEN: Soft, non-tender. Non-distended. EXTREMITIES: Moves all 4 extremities spontaneously. No edema, normal radial and dorsalis pedis pulses bilaterally. No cyanosis. BACK: no cervical, thoracic, lumbar midline tenderness. No saddle anesthesia, normal distal neurovascular exam. Moves all extremities in full range of motion. NEUROLOGICAL: Alert and oriented x3. Normal speech. Cranial nerves II through XII grossly intact. PSYCH: Normal affect, normal mood. SKIN: Warm, dry, normal turgor. No rashes or lesions noted. Course - Re-evaluation Re-evalutation: Patient reports pain in her chest with cough and states she has coughed so hard she threw up on different occasions. She does have cough on exam, she had just completed a nebulizer treatment when I evaluated her and she is not wheezing and I do not hear rhonchi at this time. She does not have lower extremity swelling, history of blood clot, she is not on hormones, she is not tachycardic, not hypoxic, and she has clear upper respiratory symptoms. I do have a low suspicion of pulmonary embolism. EKG unremarkable. Discussed with patient. Chest x-ray, influenza testing, strep negative. Overall clinical presentation consistent with bronchitis. Treating accordingly. Also provided with eyedrops for borderline conjunctivitis. Discussed follow-up and return precautions. Patient states understanding and agreement. Stable at time of discharge - Vital Signs Vital signs: Temp Pulse Resp BP Pulse Ox 98.1 F 86 18 120/82 99 09/02/19 21:57 09/02/19 21:57 09/02/19 21:57 09/02/19 21:57 09/02/19 21:57 - EKG Interpretation by Me Additional EKG results interpreted by me: EKG shows sinus rhythm at a rate of 72, normal axis, QTC of 408. No T wave inversions or ST segment changes in consecutive leads. Discharge - Discharge Clinical Impression: Cough, Wheezing Upper respiratory infection Qualifiers: URI type: unspecified URI Qualified Code(s): J06.9 - Acute upper respiratory infection, unspecified Condition: Stable Disposition: HOME, SELF-CARE Additional Instructions: No influenza, strep testing, and chest x-ray are negative and normal. Your evaluation is consistent with a viral upper respiratory infection, bronchitis. You also are being treated for pinkeye, take the eyedrops 1 drop in each eye, 4 times a day, for 5 days. The bronchitis symptoms should simply gradually resolve with time, take the prednisone as prescribed (next dose tomorrow evening), use the albuterol inhaler as prescribed, take [id number] medications for pain and congestion if needed. Return if you worsen including spiking fever, difficulty breathing, or any other concerning or worsening symptoms. Prescriptions: Prednisone [Deltasone 20 mg Tablet] 3 tab PO DAILY 4 Days #12 tablet Albuterol Sulfate [Proair HFA Inhalation Aerosol 8.5 gm MDI] 2 puff IH Q4H PRN #1 mdi PRN Reason:
--- NOTE | 2019-09-02 20:38 | RADIOLOGY REPORT (SQ) ---
EXAM DESCRIPTION: XR CHEST 2 VIEWS COMPLETED DATE/TME: 09/02/2019 19:49 CLINICAL HISTORY: 29 years Female cough, cp COMPARISON: 12/08/2017. FINDINGS: The cardiomediastinal silhouette appears unremarkable. No consolidating infiltrates or pleural effusions. No pneumothorax. IMPRESSION: No acute abnormality is identified.
[2019-09-02] MEDS ORDERED: POLYMYXIN B SULFATE/TMP OPH SOLN (10 ML/ER DISP) OU ONE (20:46)
[2019-09-02] MEDS ORDERED: PREDNISONE 20 MG TABLET PO ONE (20:46)
[2019-09-02 21:38] LABS: A TYPE INFLUENZA AG NEGATIVE (NEGATIVE); B INFLUENZA AG NEGATIVE (NEGATIVE)
[2019-09-02] MEDS ORDERED: ALBUTEROL SULFATE HFA (90 MCG/PUFF) 8 GM MDI (1 MDI/ER DISP) IH ONE (21:44)
[2019-09-02 21:58] VITALS: BP 120/82
--- NOTE | 2019-09-02 22:10 | EKG REPORT ---
SEVERITY:- BORDERLINE ECG - SINUS RHYTHM INFERIOR Q WAVES, PROBABLY NORMAL VARIATION : Confirmed by: Luis M Dwyer 02-Sep-2019 22:09:27
== END 2019-09-02 21:58 | disposition home or self-care (01) ==
LOC: ER 18:30
DX: J06.9 Acute upper respiratory infection, unspecified (principal); J02.9 Acute pharyngitis, unspecified; R68.83 Chills (without fever); R05 Cough; R07.9 Chest pain, unspecified; R06.2 Wheezing; R11.10 Vomiting, unspecified; R09.81 Nasal congestion; Z87.01 Personal history of pneumonia (recurrent); Z77.22 Contact with and (suspected) exposure to environmental tobacco smoke (acute) (chronic)
CPT/HCPCS: 94640; 99283; 87070; 87880; 87804; 71046; 93005; 93010; J3490 ×2; J7512; J7620

== ENCOUNTER 2020-03-08 23:53 | Emergency (ER) | payer OTHER ==
[2020-03-09] MEDS ORDERED: ACETAMINOPHEN 325 MG TABLET PO ONE (00:20)
--- NOTE | 2020-03-09 00:21 | ER Document Report ---
ED Medical Screen (RME) - General Chief Complaint: Back Pain Stated Complaint: LOWER ABDOMINAL PAIN Notes: Patient is a 29-year-old female with a history of tubal ligation and prior bilateral kidney stones who presents the emergency department the chief complaint of left back pain that began this morning. States she is been lying in bed all day waiting for the past but it has not improved. States this feels like a prior kidney stone. She reports discomfort with urination as well. Denies any visible hematuria. Admits to some fevers at home but none now. Denies any vomiting or diarrhea. No chills or night sweats. No recent travel or known sick contacts. I have treated and performed a rapid initial assessment of this patient. A comprehensive ED assessment and evaluation of the patient, analysis of test results and completion of medical decision making process will be conducted by additional ED providers. PHYSICAL EXAMINATION: GENERAL: Well-appearing, well-nourished and in no acute distress. A&Ox4. Answers questions appropriately. TRAVEL OUTSIDE OF THE [place] IN LAST 30 DAYS: No - Related Data Allergies/Adverse Reactions: No Known Allergies Allergy (Verified 09/02/19 19:41) Past Medical History Pulmonary Medical History: Reports: Hx Pneumonia Renal/ Medical History: Reports: Hx Kidney Stones. Denies: Hx Peritoneal Dialysis - Immunizations Immunizations up to date: Yes Hx Diphtheria, Pertussis, Tetanus Vaccination: Yes Physical Exam - Vital signs Vitals: Temp Pulse Resp BP Pulse Ox 98.9 F 83 14 146/91 H 100 03/09/20 00:01 03/09/20 00:01 03/09/20 00:01 03/09/20 00:01 03/09/20 00:01 Course - Vital Signs Vital signs: Temp Pulse Resp BP Pulse Ox 98.9 F 83 14 146/91 H 100 03/09/20 00:01 03/09/20 00:01 03/09/20 00:01 03/09/20 00:01 03/09/20 00:01
[2020-03-09] MEDS ORDERED: KETOROLAC TROMETHAMINE INJ/PF 30 MG/1 ML SDV IV ONE (01:08)
[2020-03-09] MEDS ORDERED: ONDANSETRON HCL INJ/PF 4 MG/2 ML SDV IV ONE (01:08)
[2020-03-09] MEDS ORDERED: NORMAL SALINE 1000 ML 1,000 ML IV ONE (01:42)
[2020-03-09 01:52] LABS: APPEARANCE,URINE SLIGHTLY-CLOUDY; BILIRUBIN,URINE NEGATIVE (NEGATIVE); COLOR,URINE YELLOW; GLUCOSE, URINE NEGATIVE (NEGATIVE); KETONES,URINE NEGATIVE (NEGATIVE); PROTEIN,URINE NEGATIVE (NEGATIVE); URINE SPECIFIC GRAVITY 1.019; UROBILINOGEN,URINE NEGATIVE mg/dL (<2.0)
[2020-03-09 01:54] LABS: ABSOLUTE EOSINOPHILS # (AUTO) 0.2 10^3/uL (0.0-0.6); ABSOLUTE LYMPHOCYTES (AUTO) 2.8 10^3/uL (0.5-4.7); ABSOLUTE MONOCYTES (AUTO) 0.6 10^3/uL (0.1-1.4); ABSOLUTE NEUT (AUTO) 5.2 10^3/uL (1.7-8.2); BASOPHILS % (AUTO) 0.4 % (0-2); EOSINOPHILS % (AUTO) 2.1 % (0-6); HEMATOCRIT 37.8 % (36.0-47.0); HEMOGLOBIN 13.4 g/dL (12.0-15.5); LYMPHOCYTES % (AUTO) 31.6 % (13-45); MEAN CORPUSCULAR HEMOGLOBIN 28.9 pg (27.0-33.4); MEAN CORPUSCULAR HGB CONC 35.5 g/dL (32.0-36.0); MEAN CORPUSCULAR VOLUME 81 fl (80-97); MONOCYTES % (AUTO) 7.3 % (3-13); PLATELET COUNT 268 10^3/uL (150-450); RED BLOOD COUNT 4.64 10^6/uL (3.72-5.28); RED CELL DISTRIBUTION WIDTH 14.6 % (11.5-14.0); SEGMENTED NEUTROPHILS % (AUTO) 58.6 % (42-78); TOTAL CELLS COUNTED % (AUTO) 100 %; WHITE BLOOD COUNT 8.9 10^3/uL (4.0-10.5)
--- NOTE | 2020-03-09 02:01 | ER Document Report ---
Entered by JOSÉ MIGUEL HUTSON SCRIBE 03/09/20 0133 Acting as scribe for:JACK BELLAMY IV, MD ED General - General Chief Complaint: Back Pain Stated Complaint: LOWER ABDOMINAL PAIN Time Seen by Provider: 03/09/20 01:06 Mode of Arrival: Ambulatory Information source: Patient Notes: This 29 year old female patient with a history of kidney infection presents to the ED today with complaints of bilateral flank pain that started yesterday morning. Patient reports associated low grade fever, nausea, dysuria, and pelvic pain that is described as pressure. She states that her symptoms feel similar to her prior kidney infection. Denies burning with urination, hematuria, vomiting, diarrhea, or chills. TRAVEL OUTSIDE OF THE [place] IN LAST 30 DAYS: No - Related Data Allergies/Adverse Reactions: No Known Allergies Allergy (Verified 09/02/19 19:41) Past Medical History - General Information source: Patient - Social History Smoking Status: Unknown if Ever Smoked Cigarette use (# per day): No Chew tobacco use (# tins/day): No Smoking Education Provided: No Lives with: Spouse/Significant other Family History: Reviewed & Not Pertinent Patient has suicidal ideation: No Patient has homicidal ideation: No Pulmonary Medical History: Reports: Hx Pneumonia Renal/ Medical History: Reports: Hx Kidney Stones - Immunizations Immunizations up to date: Yes Hx Diphtheria, Pertussis, Tetanus Vaccination: Yes Review of Systems - Review of Systems Constitutional: See HPI, Fever. denies: Chills EENT: No symptoms reported Cardiovascular: No symptoms reported Respiratory: No symptoms reported Gastrointestinal: See HPI, Abdominal pain, Nausea. denies: Diarrhea, Vomiting Genitourinary: See HPI, Dysuria, Flank pain. denies: Burning Female Genitourinary: No symptoms reported Musculoskeletal: No symptoms reported Skin: No symptoms reported Hematologic/Lymphatic: No symptoms reported Neurological/Psychological: No symptoms reported -: Yes All other systems reviewed and negative Physical Exam - Vital signs Vitals: Temp Pulse Resp BP Pulse Ox 98.9 F 83 20 146/91 H 100 03/08/20 23:58 03/08/20 23:58 03/08/20 23:58 03/08/20 23:58 03/08/20 23:58 - General General appearance: Alert In distress: None - HEENT Head: Normocephalic, Atraumatic Eyes: Normal Pupils: PERRL - Respiratory Respiratory status: No respiratory distress Chest status: Nontender Breath sounds: Normal Chest palpation: Normal - Cardiovascular Rhythm: Regular, Tachycardia Heart sounds: Normal auscultation Murmur: No Friction rub: No Gallop: None auscultated - Abdominal Inspection: Normal Distension: No distension Bowel sounds: Normal Tenderness: Nontender - Abdomen soft Organomegaly: No organomegaly - Back Notes: Deferred - Extremities General upper extremity: Normal inspection General lower extremity: Normal inspection - Neurological Neuro grossly intact: Yes Orientation: AAOx4 [place] Coma Scale Eye Opening: Spontaneous [place] Coma Scale Verbal: Oriented [place] Coma Scale Motor: Obeys Commands Wero Coma Scale Total: 15 - Psychological Associated symptoms: Normal affect, Normal mood - Skin Skin Temperature: Warm Skin Moisture: Dry Skin Color: Normal Course - Re-evaluation Re-evalutation: 03/09/20 05:40 Results of ED MSE discussed with patient and patient's significant other. All questions were answered prior to discharge. Plan of care discussed with patient patient spouse. Emergency signs and symptoms, reasons to return to the emergency department discussed with patient and patient's significant other. - Vital Signs Vital signs: Temp Pulse Resp BP Pulse Ox 97.5 F 59 L 16 125/80 100 03/09/20 02:59 03/09/20 02:59 03/09/20 02:59 03/09/20 02:59 03/09/20 00:01 - Laboratory Result Diagrams: 03/09/20 01:30 03/09/20 01:30 Laboratory results interpreted by me: 03/09/20 03/09/20 03/09/20 01:30 01:30 01:30 RDW 14.6 H Total Bilirubin 1.6 H Urine Blood SMALL H - Diagnostic Test Radiology reviewed: Reports reviewed Discharge - Discharge Clinical Impression: Flank pain, Dysuria Condition: Stable Disposition: HOME, SELF-CARE Additional Instructions: Return to the Emergency Department without delay if any worse. HOME CARE INSTRUCTIONS & INFORMATION: Thank you for choosing us for your medical needs. We hope you're satisfied with the care you received. After you leave, you must properly care for your problem and, at the same time, observe its progress. Any condition can change. Some illnesses can change rapidly over hours or days. If your condition worsens, return to the Emergency Department or see your physician promptly. ABOUT YOUR X-RAYS AND EKG'S: If you had an EKG or X-rays taken, they have been read by the Emergency Physician. The X-rays and EKG's will also be read by a Radiologist or Global Marketing Coordinator within 24 hours. If discrepancies are noted, you will be notified by telephone. Please be certain the ED has a correct telephone number & address where you can be reached. Also, realize that some fractures or abnormalities do not show up on initial X-rays. If your symptoms continue, see your physician. ABOUT YOUR LABORATORY TEST: If you had laboratory tests, the results have been reviewed by the Emergency Physician. Some test results (for example cultures) may not be available for several days. You will be contacted if any test result shows you need additional treatment. Please be certain the ED has a correct telephone number and address where you can be reached. ABOUT YOUR MEDICATIONS: You will receive instructions on how to take your medicine on the prescription label you receive. Additional information may be provided by the Pharmacy. If you have questions afterwards, call the ED for clarification or further instructions. Some prescribed medications may cause drowsiness. Do not perform tasks such as driving a car or operating machinery without consulting your Pharmacist. If you feel you need a refill of pain medication, your condition will need re-evaluation. Please do not call for a refill of any medication. ABOUT YOUR SIGNATURE: Signature of this document acknowledges to followin. Understanding that you received emergency treatment and that you may be released before al medical problems are known or treated. Please be certain the ED has a correct phone number & address where you can be reached. 2. Acknowledgement that you will arrange for follow-up care as recommended. 3. Authorization for the Emergency Physician to provide information to your follow-up Physician in order to maximize your care. AT ANY TIME, IF YOUR SYMPTOMS CHANGE SIGNIFICANTLY OR WORSEN OR YOU DEVELOP NEW SYMPTOMS, RETURN TO THE EMERGENCY DEPARTMENT IMMEDIATELY FOR RE-EVALUATION. OUR GOAL IS TO PROVIDE EXCELLENT MEDICAL CARE! WE HOPE THAT WE HAVE MET YOUR EXPECTATIONS DURING YOUR EMERGENCY DEPARTMENT VISIT AND THAT YOU FEEL YOU HAVE RECEIVED EXCELLENT CARE! Prescriptions: Hydrocodone/Acetaminophen [[place] 5-325 mg Tablet] 1 tab PO Q6HP PRN #15 tablet PRN Reason: pain Ondansetron [Zofran Odt 4 mg Tablet] 1 tab PO Q6HP PRN #12 tab.rapdis PRN Reason: Levofloxacin [Levaquin 750 mg Tablet] 750 mg PO DAILY #5 tablet Phenazopyridine HCl [Pyridium 200 mg Tablet] 200 mg PO TID #6 tablet Referrals: MADHU MONGE MD [HONORARY] - Follow up as needed I personally performed the services described in the documentation, reviewed and edited the documentation which was dictated to the scribe in my presence, and it accurately records my words and actions.
[2020-03-09] MEDS ORDERED: HYDROMORPHONE HCL INJ/PF 2 MG/ML AMPULE IV ONE ×2 (02:02→04:30)
[2020-03-09 02:04] LABS: ALBUMIN 4.3 g/dL (3.5-5.0); ALKALINE PHOSPHATASE 87 U/L (38-126); ANION GAP 9 (5-19); ASPARTATE AMINO TRANSFERASE 24 U/L (14-36); BILIRUBIN,TOTAL 1.6 mg/dL (0.2-1.3); BLOOD UREA NITROGEN 12 mg/dL (7-20); CALCIUM 8.9 mg/dL (8.4-10.2); CARBON DIOXIDE 24 mmol/L (22-30); CHLORIDE 106 mmol/L (98-107); GLUCOSE 97 mg/dL (75-110); TOTAL PROTEIN 7.6 g/dL (6.3-8.2)
--- NOTE | 2020-03-09 03:53 | RADIOLOGY REPORT (SQ) ---
EXAM DESCRIPTION: CT ABDOMEN PELVIS WITHOUT IV CONTRAST COMPLETED DATE/TME: 03/09/2020 03:18 CLINICAL HISTORY: bilateral flank pain and hematuria COMPARISON: 07/06/2019 TECHNIQUE: CT of the abdomen and pelvis without IV contrast. Evaluation of the solid organs and vasculature is suboptimal due to lack of IV contrast. FINDINGS: Lung Bases: The visualized lung bases are clear. Bones: No destructive bone lesions identified. Abdomen: Liver: The liver has normal size and density. Gallbladder: No calcified gallstones. Spleen, Pancreas, and Adrenal Glands: The spleen, pancreas, and adrenal glands are unremarkable. Kidneys: The kidneys have normal size without evidence of hydronephrosis. No obstructing ureteral calculi. Vasculature: The aorta and IVC have normal caliber and position. Stomach: The stomach and duodenum have normal course. Other: No free intraperitoneal air. No free fluid or lymphadenopathy. Pelvis: Bladder: Urinary bladder is unremarkable. Bowel: No dilated loops of large or small bowel. Appendix: Normal appendix. Pelvis: Uterus is not enlarged. IMPRESSION: 1. No acute inflammatory or obstructive process identified. This exam was performed according to our departmental dose-optimization program, which includes automated exposure control, adjustment of the mA and/or kV according to patient size and/or use of iterative reconstruction technique.
[2020-03-09] MEDS ORDERED: CEFTRIAXONE 1 GM/D5W RTU 1 GM/50 ML RTUPB IV ONE (05:36)
[2020-03-09] MEDS ORDERED: PROMETHAZINE HCL INJ 25 MG/1 ML VIAL IV ONE (05:36)
[2020-03-09] MEDS ORDERED: CEFTRIAXONE 1 GM/D5W RTU 0 GM/0 ML RTUPB IV ONE (05:41)
[2020-03-09] MEDS ORDERED: HYDROCODONE/ACETAMINOPHEN 5-325 MG (6 TAB/ER DISP) PO PRN (05:42)
[2020-03-09 06:42] VITALS: BP 99/61
== END 2020-03-09 06:43 | disposition home or self-care (01) ==
LOC: ER 23:53
DX: R10.9 Unspecified abdominal pain (principal); R30.0 Dysuria; M54.9 Dorsalgia, unspecified; R50.9 Fever, unspecified; R11.0 Nausea; R10.2 Pelvic and perineal pain; Z87.442 Personal history of urinary calculi
CPT/HCPCS: 96376; 99284; 96361; 96375; 96365; 36415; 83690; 84703; 85025; 80053; 81001; 74176; J1885; J1170; J2550; J2405; J7030; J0696; 87086; 87088

== ENCOUNTER 2020-05-03 20:23 | Emergency (ER) | payer OTHER ==
--- NOTE | 2020-05-03 20:57 | ER Document Report ---
ED Medical Screen (RME) - General Chief Complaint: Blood Pressure Problem Stated Complaint: REPORTS HIGH BLOOD PRESSURE/LEG PAIN Time Seen by Provider: 05/03/20 20:50 TRAVEL OUTSIDE OF THE [place] IN LAST 30 DAYS: No - HPI Notes: 05/03/20 20:56 29-year-old female to the emergency department with complaints of bilateral leg pain that is getting progressively worse over the past 2 days. Pain is so significant now that she really is having difficulty with walking. Admits to off and on chest pain as well. States that she feels like her legs are swollen. She has not recently been exercising or out in the heat sweating a lot. Denies any fevers, chills, nausea, vomiting, diarrhea. I performed a brief medical screening exam on the patient determined that the patient needs further evaluation and management by main side provider. I have placed initial orders to help expedite care. - Related Data Allergies/Adverse Reactions: No Known Allergies Allergy (Verified 09/02/19 19:41) Past Medical History Pulmonary Medical History: Reports: Hx Pneumonia Renal/ Medical History: Reports: Hx Kidney Stones. Denies: Hx Peritoneal Dialysis - Immunizations Immunizations up to date: Yes Hx Diphtheria, Pertussis, Tetanus Vaccination: Yes Physical Exam - Vital signs Vitals: Temp Pulse Resp BP Pulse Ox 98.5 F 87 17 163/94 H 99 05/03/20 20:31 05/03/20 20:31 05/03/20 20:31 05/03/20 20:31 05/03/20 20:31 Course - Vital Signs Vital signs: Temp Pulse Resp BP Pulse Ox 98.5 F 87 17 163/94 H 99 05/03/20 20:31 05/03/20 20:31 05/03/20 20:31 05/03/20 20:31 05/03/20 20:31
[2020-05-03 21:38] LABS: ABSOLUTE EOSINOPHILS # (AUTO) 0.1 10^3/uL (0.0-0.6); ABSOLUTE LYMPHOCYTES (AUTO) 1.6 10^3/uL (0.5-4.7); ABSOLUTE MONOCYTES (AUTO) 0.6 10^3/uL (0.1-1.4); ABSOLUTE NEUT (AUTO) 5.9 10^3/uL (1.7-8.2); BASOPHILS % (AUTO) 0.4 % (0-2); EOSINOPHILS % (AUTO) 1.5 % (0-6); HEMATOCRIT 37.3 % (36.0-47.0); LYMPHOCYTES % (AUTO) 19.8 % (13-45); MEAN CORPUSCULAR HEMOGLOBIN 28.1 pg (27.0-33.4); MEAN CORPUSCULAR HGB CONC 34.9 g/dL (32.0-36.0); MEAN CORPUSCULAR VOLUME 81 fl (80-97); MONOCYTES % (AUTO) 7.2 % (3-13); PLATELET COUNT 259 10^3/uL (150-450); RED BLOOD COUNT 4.63 10^6/uL (3.72-5.28); RED CELL DISTRIBUTION WIDTH 15.1 % (11.5-14.0); SEGMENTED NEUTROPHILS % (AUTO) 71.1 % (42-78); TOTAL CELLS COUNTED % (AUTO) 100 %; WHITE BLOOD COUNT 8.3 10^3/uL (4.0-10.5)
[2020-05-03 21:49] LABS: ALBUMIN 4.9 g/dL (3.5-5.0); ALKALINE PHOSPHATASE 93 U/L (38-126); ANION GAP 10 (5-19); ASPARTATE AMINO TRANSFERASE 34 U/L (14-36); BILIRUBIN,DIRECT 0.2 mg/dL (0.0-0.4); BILIRUBIN,TOTAL 1.3 mg/dL (0.2-1.3); BLOOD UREA NITROGEN 8 mg/dL (7-20); CALCIUM 9.4 mg/dL (8.4-10.2); CARBON DIOXIDE 23 mmol/L (22-30); CHLORIDE 109 mmol/L (98-107); CREATINE KINASE 56 U/L (30-135); GLUCOSE 77 mg/dL (75-110); TOTAL PROTEIN 8.2 g/dL (6.3-8.2)
[2020-05-03 21:51] LABS: APPEARANCE,URINE SLIGHTLY-CLOUDY; BILIRUBIN,URINE NEGATIVE (NEGATIVE); CALCIUM OXALATE CRYSTALS,URINE FEW /HPF; COLOR,URINE YELLOW; GLUCOSE, URINE NEGATIVE (NEGATIVE); KETONES,URINE NEGATIVE (NEGATIVE); LEUKOCYTE ESTERASE,URINE NEGATIVE (NEGATIVE); NITRITE,URINE NEGATIVE (NEGATIVE); PROTEIN,URINE 30 mg/dL (NEGATIVE); URINE SPECIFIC GRAVITY 1.027
--- NOTE | 2020-05-03 21:54 | EKG REPORT ---
SEVERITY:- NORMAL ECG - SINUS RHYTHM : Confirmed by: Konstantin Antoine MD 03-May-2020 21:53:56
[2020-05-04] MEDS ORDERED: NORMAL SALINE 1000 ML 1,000 ML IV ONE (02:20)
[2020-05-04] MEDS ORDERED: MORPHINE SULFATE 10 MG/ML INJ IV ONE (02:20)
[2020-05-04] MEDS ORDERED: ONDANSETRON HCL INJ/PF 4 MG/2 ML SDV IV ONE (02:20)
--- NOTE | 2020-05-04 02:22 | ER Document Report ---
ED General - General Chief Complaint: Leg Pain Stated Complaint: REPORTS HIGH BLOOD PRESSURE/LEG PAIN Time Seen by Provider: 05/03/20 20:50 Notes: Patient is a 29-year-old female that comes emergency department for chief complaint of bilateral leg pain. She states that symptoms started yesterday and have been significantly worsening, she states pain is mainly in her thighs, she states pain is worsened to the point that she feels like she can barely walk. She states that she also occasionally feels a tingling sensation in her legs, she reports some generalized mild aches in her lower back. She denies any injury, lifting, significant change in physical activity. She denies fever, chills, nausea/vomiting, or recent illness. Patient denies any daily medications, denies , denies ever using IV drugs or recreational drugs. Patient denies smoking, reports occasional alcohol. TRAVEL OUTSIDE OF THE [place] IN LAST 30 DAYS: No - Related Data Allergies/Adverse Reactions: No Known Allergies Allergy (Verified 09/02/19 19:41) Home Medications: Tizanidine Past Medical History - General Information source: Patient - Social History Smoking Status: Never Smoker Chew tobacco use (# tins/day): No Frequency of alcohol use: Occasional Drug Abuse: None Lives with: Family Family History: Reviewed & Not Pertinent Pulmonary Medical History: Reports: Hx Pneumonia Renal/ Medical History: Reports: Hx Kidney Stones. Denies: Hx Peritoneal Dialysis - Immunizations Immunizations up to date: Yes Hx Diphtheria, Pertussis, Tetanus Vaccination: Yes Review of Systems - Review of Systems Constitutional: See HPI EENT: No symptoms reported Cardiovascular: No symptoms reported Respiratory: No symptoms reported Gastrointestinal: No symptoms reported Genitourinary: No symptoms reported Female Genitourinary: No symptoms reported Musculoskeletal: See HPI Skin: No symptoms reported Hematologic/Lymphatic: No symptoms reported Neurological/Psychological: See HPI Physical Exam - Vital signs Vitals: Temp Pulse Resp BP Pulse Ox 98.5 F 87 17 163/94 H 99 05/03/20 20:31 05/03/20 20:31 05/03/20 20:31 05/03/20 20:31 05/03/20 20:31 - Notes Notes: GENERAL: Patient appears anxious and uncomfortable HEAD: Normocephalic, atraumatic. EYES: Pupils equal, round, and reactive to light. Extraocular movements intact. ENT: Oral mucosa moist, tongue midline. Oropharynx unremarkable. Airway patent. NECK: Full range of motion. Supple. Trachea midline. No lymphadenopathy. LUNGS: Clear to auscultation bilaterally, no wheezes, rales, or rhonchi. No respiratory distress. Non-tender chest wall. HEART: Regular rate and rhythm. No murmur ABDOMEN: Soft, non-tender. Non-distended. Bowel sounds present in all 4 quadrants. GENITOURINARY: Deferred EXTREMITIES: Patient with tenderness and complains with palpation over the anterior general thighs although there is no erythema, swelling, or severe pain. Normal hip, knee, ankle exams, normal distal vascular exam, no edema. BACK: Generally nontender over the back. No signs of trauma. No cervical, thoracic, lumbar midline tenderness. No saddle anesthesia, normal distal neurovascular exam. Moves all extremities in full range of motion. NEUROLOGICAL: Alert and oriented x3. Normal speech. Cranial nerves II through XI I grossly intact. Strength 5/5 in all extremities. PSYCH: Anxious and borderline tearful SKIN: Warm, dry, normal turgor. No rashes or lesions noted. Course - Re-evaluation Re-evalutation: On initial evaluation patient appears uncomfortable and also anxious. She has tenderness to palpation of the general anterior bilateral thighs although there is no severe pain, no erythema or swelling, normal range of motion at the hip, knee, ankle, normal distal neurovascular exam, no evidence of a sending paralysis suggesting MRA. Patient is able to ambulate without difficulty. No other concerning findings noted, no fever. CBC, chemistry unremarkable, urinalysis shows elevated specific gravity but otherwise unremarkable. Patient given IV fluids. CRP is not remarkable, ESR is not elevated, CK is not elevated. On reevaluation patient is still complaining of some pain in the muscle areas but states she is improved. She is very well- appearing now. Patient started getting anxious after discussion as well, I do suspect a psychological component. Discussed with patient different options. My strongest suspicion is that her muscle pains are reactive and she could be fighting a viral illness, this also could be simple muscle strain, low suspicion of myositis, compartment syndrome, or acute neurological abnormality based on her benign exam. Discussed primary care follow-up, treatment at home, and return precautions. Patient and state understanding and agreement. - Vital Signs Vital signs: Temp Pulse Resp BP Pulse Ox 98.5 F 87 13 122/87 H 99 05/03/20 20:31 05/03/20 20:31 05/04/20 04:41 05/04/20 04:41 05/04/20 04:41 - Laboratory Result Diagrams: 05/03/20 21:22 05/03/20 21:22 Laboratory results interpreted by me: 05/03/20 05/03/20 05/03/20 21:22 21:22 21:22 RDW 15.1 H Chloride 109 H C-Reactive Protein Urine Protein 30 H Urine Blood MODERATE H Urine Urobilinogen 2.0 H 05/04/20 03:12 RDW Chloride C-Reactive Protein 10.6 H Urine Protein Urine Blood Urine Urobilinogen Discharge - Discharge Clinical Impression: Muscle pain Leg pain Qualifiers: Laterality: bilateral Qualified Code(s): M79.604 - Pain in right leg Condition: Stable Disposition: HOME, SELF-CARE Additional Instructions: Your work-up does not show any concerning findings other than dehydration. Improve your hydration, take the anti-inflammatory muscle relaxer as prescribed, apply heat to your legs/thighs, symptoms should simply resolve with time. Follow-up with primary care for additional management and testing as we discussed. Return if you worsen including severe worsening pain, swelling, fever, numbness, vomiting, or any other concerning or worsening symptoms. Prescriptions: Cyclobenzaprine HCl 1 - 2 tab PO Q8H PRN #20 tablet PRN Reason: Naproxen 500 mg PO BID PRN #20 tablet PRN Reason:
[2020-05-04] MEDS ORDERED: KETOROLAC TROMETHAMINE INJ/PF 30 MG/1 ML SDV IV ONE (03:17)
[2020-05-04 03:35] LABS: C-REACTIVE PROTEIN 10.6 mg/L (<10.0)
[2020-05-04] MEDS ORDERED: CYCLOBENZAPRINE HCL 10 MG TABLET PO ONE (04:33)
[2020-05-04 04:48] VITALS: BP 122/87
== END 2020-05-04 04:48 | disposition home or self-care (01) ==
LOC: ER 20:23
DX: M79.651 Pain in right thigh (principal); M79.652 Pain in left thigh; M79.10 Myalgia, unspecified site; R20.2 Paresthesia of skin; M54.5 Low back pain; Z79.899 Other long term (current) drug therapy
CPT/HCPCS: 93005; 99284; 96361; 96374; 96375; 36415; 82550; 83735; 85025; 85652; 81025; 86140; 80053; 81001; 93010; J1885; J2270; J2405; J7030

== ENCOUNTER 2020-06-22 22:01 | Emergency (ER) | payer OTHER ==
--- NOTE | 2020-06-22 23:56 | ER Document Report ---
ED Medical Screen (RME) - General Chief Complaint: Nausea Stated Complaint: NAUSEA,DIARRHEA,PAIN WHILE EATING Notes: Patient is a 30-year-old female with no reported past medical history presents the emergency department with chief complaint of epigastric abdominal discomfort for the past 2 days. States it radiates across the entire upper abdomen. Associated with nausea vomiting or diarrhea. States is worse with oral intake. States she has had some chills. Denies any fevers, yellowing of the skin or eyes. No recent travel or known sick contacts. No prior abdominal surgeries. I have treated and performed a rapid initial assessment of this patient. A comprehensive ED assessment and evaluation of the patient, analysis of test results and completion of medical decision making process will be conducted by additional ED providers. PHYSICAL EXAMINATION: GENERAL: Well-appearing, well-nourished and in no acute distress. A&Ox4. Answers questions appropriately. TRAVEL OUTSIDE OF THE [place] IN LAST 30 DAYS: No - Related Data Allergies/Adverse Reactions: No Known Allergies Allergy (Verified 09/02/19 19:41) Past Medical History Pulmonary Medical History: Reports: Hx Pneumonia Renal/ Medical History: Reports: Hx Kidney Stones. Denies: Hx Peritoneal Dialysis - Immunizations Immunizations up to date: Yes Hx Diphtheria, Pertussis, Tetanus Vaccination: Yes Physical Exam - Vital signs Vitals: Temp Pulse Resp BP Pulse Ox 98.6 F 92 20 137/94 H 98 06/22/20 22:25 06/22/20 22:25 06/22/20 22:25 06/22/20 22:25 06/22/20 22:25 Course - Vital Signs Vital signs: Temp Pulse Resp BP Pulse Ox 98.6 F 92 20 137/94 H 98 06/22/20 22:25 06/22/20 22:25 06/22/20 22:25 06/22/20 22:25 06/22/20 22:25
[2020-06-23 00:20] LABS: ABSOLUTE EOSINOPHILS # (AUTO) 0.2 10^3/uL (0.0-0.6); ABSOLUTE LYMPHOCYTES (AUTO) 2.1 10^3/uL (0.5-4.7); ABSOLUTE MONOCYTES (AUTO) 0.5 10^3/uL (0.1-1.4); ABSOLUTE NEUT (AUTO) 5.5 10^3/uL (1.7-8.2); BASOPHILS % (AUTO) 0.4 % (0-2); EOSINOPHILS % (AUTO) 1.9 % (0-6); HEMATOCRIT 36.6 % (36.0-47.0); HEMOGLOBIN 13.1 g/dL (12.0-15.5); LYMPHOCYTES % (AUTO) 25.5 % (13-45); MEAN CORPUSCULAR HEMOGLOBIN 28.7 pg (27.0-33.4); MEAN CORPUSCULAR HGB CONC 35.7 g/dL (32.0-36.0); MEAN CORPUSCULAR VOLUME 80 fl (80-97); MONOCYTES % (AUTO) 5.9 % (3-13); PLATELET COUNT 257 10^3/uL (150-450); RED BLOOD COUNT 4.55 10^6/uL (3.72-5.28); RED CELL DISTRIBUTION WIDTH 15.5 % (11.5-14.0); SEGMENTED NEUTROPHILS % (AUTO) 66.3 % (42-78); TOTAL CELLS COUNTED % (AUTO) 100 %; WHITE BLOOD COUNT 8.2 10^3/uL (4.0-10.5)
[2020-06-23 00:38] LABS: APPEARANCE,URINE CLOUDY; BILIRUBIN,URINE NEGATIVE (NEGATIVE); COLOR,URINE YELLOW; GLUCOSE, URINE NEGATIVE (NEGATIVE); KETONES,URINE NEGATIVE (NEGATIVE); PROTEIN,URINE 30 mg/dL (NEGATIVE); URINE SPECIFIC GRAVITY 1.026; UROBILINOGEN,URINE NEGATIVE mg/dL (<2.0)
--- NOTE | 2020-06-23 00:54 | RADIOLOGY REPORT (SQ) ---
CLINICAL HISTORY: pain n/v/ COMPARISON: None. TECHNIQUE: US ABDOMEN LIMITED 06/22/2020 11:56 PM CDT FINDINGS: Liver is mildly echogenic. There is no biliary dilatation. Common bile duct measures 2 mm gallbladder is normal in appearance without wall thickening, gallstones or pericholecystic fluid. Right kidney measures 12.8 cm without hydronephrosis. IMPRESSION: Unremarkable study.
[2020-06-23 01:18] LABS: ALBUMIN 4.8 g/dL (3.5-5.0); ALKALINE PHOSPHATASE 84 U/L (38-126); ANION GAP 10 (5-19); ASPARTATE AMINO TRANSFERASE 33 U/L (14-36); BILIRUBIN,DIRECT 0.2 mg/dL (0.0-0.4); BILIRUBIN,TOTAL 1.9 mg/dL (0.2-1.3); BLOOD UREA NITROGEN 11 mg/dL (7-20); CALCIUM 9.9 mg/dL (8.4-10.2); CARBON DIOXIDE 23 mmol/L (22-30); CHLORIDE 107 mmol/L (98-107); GLUCOSE 96 mg/dL (75-110); POTASSIUM 4.1 mmol/L (3.6-5.0); TOTAL PROTEIN 7.7 g/dL (6.3-8.2)
[2020-06-23] MEDS ORDERED: ACETAMINOPHEN 325 MG TABLET PO ONE (03:14)
[2020-06-23] MEDS ORDERED: HYDROCODONE/ACETAMINOPHEN 5-325 MG (6 TAB/ER DISP) PO PRN (05:06)
--- NOTE | 2020-06-23 05:07 | ER Document Report ---
ED GI/ - General Chief Complaint: Nausea/Vomiting/Diarrhea Stated Complaint: NAUSEA,DIARRHEA,PAIN WHILE EATING Time Seen by Provider: 06/23/20 04:50 Primary Care Provider: LUIS WALDROP MD [ACTIVE STAFF] - Follow up in 1 week Notes: Patient is a 30-year-old female that comes emergency department for chief complaint of upper abdominal pain. Patient states that she has had worsening symptoms for about 2 days, symptoms are worse with food. She denies flank pain, lower abdominal pain, vaginal bleeding or discharge, fever, vomiting. She states she has had intermittent nausea with the pain. She has had intermittent loose stools but no frequent diarrhea or grossly bloody stools. She has had a tubal ligation, no other abdominal surgeries. She takes no daily prescribed medications. She denies smoking or recreational drugs, smokes occasional alcohol. TRAVEL OUTSIDE OF THE [place] IN LAST 30 DAYS: No - Related Data Allergies/Adverse Reactions: No Known Allergies Allergy (Verified 06/22/20 23:57) Past Medical History - General Information source: Patient, Relative - - Social History Smoking Status: Never Smoker Frequency of alcohol use: None Drug Abuse: None Lives with: Family Family History: Reviewed & Not Pertinent Pulmonary Medical History: Reports: Hx Pneumonia Renal/ Medical History: Reports: Hx Kidney Stones. Denies: Hx Peritoneal Dialysis - Immunizations Immunizations up to date: Yes Hx Diphtheria, Pertussis, Tetanus Vaccination: Yes Review of Systems - Review of Systems Constitutional: No symptoms reported EENT: No symptoms reported Cardiovascular: No symptoms reported Respiratory: No symptoms reported Gastrointestinal: See HPI Genitourinary: No symptoms reported Female Genitourinary: No symptoms reported Musculoskeletal: No symptoms reported Skin: No symptoms reported Hematologic/Lymphatic: No symptoms reported Neurological/Psychological: No symptoms reported Physical Exam - Vital signs Vitals: Temp Pulse Resp BP Pulse Ox 98.6 F 92 20 137/94 H 98 06/22/20 22:25 06/22/20 22:25 06/22/20 22:25 06/22/20 22:25 06/22/20 22:25 - Notes Notes: GENERAL: Alert, interacts well. No acute distress. HEAD: Normocephalic, atraumatic. EYES: Pupils equal, round, and reactive to light. Extraocular movements intact. ENT: Oral mucosa moist, tongue midline. Oropharynx unremarkable. Airway patent. NECK: Full range of motion. Supple. Trachea midline. No lymphadenopathy. LUNGS: Clear to auscultation bilaterally, no wheezes, rales, or rhonchi. No respiratory distress. Non-tender chest wall. HEART: Regular rate and rhythm. No murmur ABDOMEN: Generalized upper abdominal tenderness, no specific area of guarding, no distention, no rigidity. Lower abdomen benign. Bowel sounds present throughout. GENITOURINARY: Deferred EXTREMITIES: Moves all 4 extremities spontaneously. No edema, normal radial and dorsalis pedis pulses bilaterally. No cyanosis. BACK: no cervical, thoracic, lumbar midline tenderness. No saddle anesthesia, normal distal neurovascular exam. Moves all extremities in full range of motion. NEUROLOGICAL: Alert and oriented x3. Normal speech. Cranial nerves II through XII grossly intact. Strength 5/5 in all extremities. PSYCH: Moderately anxious requiring reassurance SKIN: Warm, dry, normal turgor. No rashes or lesions noted. Course - Re-evaluation Re-evalutation: Patient has generalized upper abdominal tenderness but there is no significant tenderness or guarding. Vital signs unremarkable. CBC, chemistry, lipase unremarkable. test negative. Urine nonspecific with no urinary symptoms. Ultrasound reviewed and unremarkable. Based on her overall evaluation I most strongly suspect gastritis, low suspicion of acute abdomen or any acute intrathoracic etiology based on her evaluation. I discussed details, options, follow-up, return precautions at length with patient and significant other. They state appreciation and agreement. Stable and well-appearing at time of discharge. - Vital Signs Vital signs: Temp Pulse Resp BP Pulse Ox 98.7 F 76 15 120/65 98 06/23/20 05:18 06/23/20 05:18 06/23/20 05:18 06/23/20 05:18 06/23/20 05:18 - Laboratory Result Diagrams: 06/23/20 00:07 06/23/20 00:07 Laboratory results interpreted by me: 06/23/20 06/23/20 06/23/20 00:07 00:07 00:07 RDW 15.5 H Total Bilirubin 1.9 H Urine Protein 30 H Urine Blood SMALL H Discharge - Discharge Clinical Impression: Upper abdominal pain, Nausea Condition: Stable Disposition: HOME, SELF-CARE Instructions: Oral Narcotic Medication ([facility]) Additional Instructions: Your ultrasound and laboratory work-up did not show concerning findings today. Based on your work-up and your symptoms I suspect that you have gastritis, inf lammation of the upper gastrointestinal tract. Take Phenergan for nausea, take Carafate and Pepcid as prescribed to help treat this, you can take additional Rolaids, Tums, Maalox, etc. if needed. You can take Tylenol or the provided medication for pain. Avoid NSAIDs, alcohol, smoking, caffeine, spicy food. Start with clear fluids, progress to bland diet. Follow-up with primary care for additional evaluation and management including possible HIDA scan as we discussed. Return if you worsen including uncontrolled vomiting, vomiting blood, black stools, severe pain, fever of 100.4 or greater, or any other concerning or worsening symptoms. Prescriptions: Sucralfate [Carafate 1 gm Tablet] 1 gm PO QID #20 tablet Famotidine [Pepcid 20 mg Tablet] 20 mg PO BID #20 tablet Promethazine HCl [Phenergan 25 mg Tablet] 25 mg PO Q6H PRN #15 tablet PRN Reason: Forms: Treatment of Relative/Child Referrals: LUIS WALDROP MD [ACTIVE STAFF] - Follow up in 1 week
[2020-06-23 05:21] VITALS: BP 120/65
== END 2020-06-23 05:18 | disposition home or self-care (01) ==
LOC: ER 22:01
DX: R10.10 Upper abdominal pain, unspecified (principal); R11.0 Nausea; R19.4 Change in bowel habit; Z98.51 Tubal ligation status; Z87.442 Personal history of urinary calculi
CPT/HCPCS: 36415; 76705; 80053; 81001; 83690; 84703; 85025; 99284

== ENCOUNTER 2020-07-21 18:45 | Emergency (ER) | payer OTHER ==
[2020-07-21] MEDS ORDERED: AMOXICILLIN TR/POT CLAVULANATE 875-125 MG TAB PO ONE (19:39)
[2020-07-21] MEDS ORDERED: OXYCODONE-ACETAMINOPHEN 5-325 MG TABLET PO ONE (19:39)
--- NOTE | 2020-07-21 19:40 | ER Document Report ---
ED Medical Screen (RME) - General Chief Complaint: Dog Bite Stated Complaint: DOG BITE Mode of Arrival: Wheelchair Information source: Patient Notes: Patient is a 30-year-old female comes emergency room complaining of having a dog bite to her left forearm. Patient states she has her own dog sterile for both they were out and back and started to fight patient went out to break them up in one of the dogs clamped down on her left forearm. Patient states that they bit down about 4 times before she can get them off. She comes in with the whole arm wrapped up in gauze. Patient appears to be in assessing the amount of pain. She denies any other medical problems currently takes no medications. She does not smoke. Patient states her last tetanus shot was given here approximately 2 to 3 years ago. Physical examination: Patient is a well-nourished well-developed 30-year-old female no apparent distress but does appear very uncomfortable and in obvious pain. Patient is crying on examination. Cardiac: Patient is clearly is tachycardic at 100 bpm. No murmurs noted. Lungs: Bilateral breath sounds clear to auscultation. Upper extremity: Examination patient's her concern is her left forearm. With it still wrapped patient is having difficulty with 100% full extension of the fingers on the left hand as well as 100% flexion of the fingers. After unwrapping the dressing patient came to the ER with there are only 2 puncture wounds one on the dorsal aspect of the left forearm and one on the palmar side of the forearm. There is moderate swelling. Both are puncture wounds no major lacerations. But they do appear deep and there is soft tissue swelling. Patient has good cap refill in nailbeds of those fingers on examination. 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 I have greeted and performed a rapid initial assessment of this patient. A comprehensive ED assessment and evaluation of the patient, analysis of test results and completion of the medical decision making process will be conducted by additional ED providers. Dictation of this chart was performed using voice recognition software; therefore, there may be some unintended grammatical errors. TRAVEL OUTSIDE OF THE [place] IN LAST 30 DAYS: No - Related Data Allergies/Adverse Reactions: No Known Allergies Allergy (Verified 06/22/20 23:57) Past Medical History Pulmonary Medical History: Reports: Hx Pneumonia Renal/ Medical History: Reports: Hx Kidney Stones. Denies: Hx Peritoneal Dialysis - Immunizations Immunizations up to date: Yes Hx Diphtheria, Pertussis, Tetanus Vaccination: Yes Physical Exam - Vital signs Vitals: Temp Pulse Resp BP Pulse Ox 98.9 F 100 18 126/88 H 100 07/21/20 19:03 07/21/20 19:03 07/21/20 19:03 07/21/20 19:03 07/21/20 19:03 Course - Vital Signs Vital signs: Temp Pulse Resp BP Pulse Ox 98.9 F 100 18 126/88 H 100 07/21/20 19:03 07/21/20 19:03 07/21/20 19:03 07/21/20 19:03 07/21/20 19:03
--- NOTE | 2020-07-21 20:37 | RADIOLOGY REPORT (SQ) ---
EXAM DESCRIPTION: XR FOREARM 2 VIEWS COMPLETED DATE/TME: 07/21/2020 19:53 CLINICAL HISTORY: 30 years, Female, Dog bite COMPARISON: None. NUMBER OF VIEWS: 2 TECHNIQUE: Two views of the left forearm are obtained. LIMITATIONS: None. FINDINGS: There is no fracture or dislocation. There is apparent bandage material about the dorsal aspect of the distal forearm. No opaque foreign body is otherwise seen. IMPRESSION: Negative study as above copyright 2010 [employer]- All Rights Reserved
[2020-07-22] MEDS ORDERED: KETOROLAC TROMETHAMINE 60 MG/2 ML SDV IM ONE (00:11)
[2020-07-22] MEDS ORDERED: OXYCODONE-ACETAMINOPHEN 5-325 MG TABLET PO ONE (00:11)
--- NOTE | 2020-07-22 00:17 | ER Document Report ---
ED Animal Bite - General Chief Complaint: Dog Bite Stated Complaint: DOG BITE Time Seen by Provider: 07/22/20 00:02 Primary Care Provider: JOHNATHAN GONGORA MD [Primary Care Provider] - Follow up as needed Mode of Arrival: Wheelchair Notes: CHIEF COMPLAINT: Dog bite left forearm HPI: 30-year-old female presenting for pain from a dog bite to the left forearm. Dog was a pit bull, it is the patient's dog. Her dogs were fighting over a stick and she stepped in between them. Patient states she is up-to-date on her tetanus vaccination. Patient states that she sustained puncture wounds on the top and bottom of the forearm. Patient states that she has some difficulty opening and closing the hand secondary to pain. Denies other injuries or complaints. She states that her dogs are up-to-date on vaccinations ROS: See HPI - all other systems were reviewed and are otherwise negative Constitutional: no fever Integumentary: no rash Allergy: no hives Musculoskeletal: + extremity pain or swelling Neurological: no numbness/tingling MEDICATIONS: I agree with the patient medications as charted by the RN. ALLERGIES: I agree with the allergies as charted by the RN. PAST MEDICAL HISTORY/PAST SURGICAL HISTORY: Reviewed and agree as charted by RN. SOCIAL HISTORY: Reviewed and agree as charted by RN. FAMILY HISTORY: No significant familial comorbid conditions directly related to patient complaint EXAM: Reviewed vital signs as charted by RN. CONSTITUTIONAL: Alert and oriented and responds appropriately to questions. Well-appearing; well-nourished HEAD: Normocephalic; atraumatic EYES: Conjunctivae clear, sclerae non-icteric ENT: normal nose; no rhinorrhea; moist mucous membranes NECK: Supple without meningismus CARD: symmetric distal pulses RESP: Normal chest excursion without splinting or tachypnea ABD/GI: non-distended BACK: The back appears normal EXT: There is some limited flexion extension of the fingers of the left hand as well as the left wrist secondary to pain. There is a puncture wound measuring 1 cm on the volar aspect of the left forearm. There is a puncture wound on the dorsal aspect of the left forearm measuring 1 cm. No visible or palpable foreign bodies. There is soft tissue swelling noted on the dorsal aspect of the left forearm with slight bruising present. Radial and ulnar pulses are present in the left wrist. Sensation is intact in the fingertips with capillary refill less than 3 seconds SKIN: Normal color for age and race; warm; dry; good turgor NEURO: Moves all extremities equally; Motor and sensory function intact PSYCH: The patient's mood and manner are appropriate. Grooming and personal hygiene are appropriate. MDM: 30-year-old female dog bite to the left forearm. We discussed compartment syndrome and precautions. Given the puncture wounds will have nursing irrigate and Steri-Strip we will not plan to close these otherwise. Patient will be placed on Augmentin pain medication referral to orthopedics. X-ray imaging did not reveal fracture or foreign body TRAVEL OUTSIDE OF THE [place] IN LAST 30 DAYS: No - Related Data Allergies/Adverse Reactions: No Known Allergies Allergy (Verified 06/22/20 23:57) Home Medications: denies Past Medical History - General Information source: Patient - Social History Smoking Status: Never Smoker Chew tobacco use (# tins/day): No Frequency of alcohol use: None Drug Abuse: None Family History: Reviewed & Not Pertinent Patient has homicidal ideation: No Pulmonary Medical History: Reports: Hx Pneumonia Renal/ Medical History: Reports: Hx Kidney Stones. Denies: Hx Peritoneal Dialysis Past Surgical History: Reports: Hx Tubal Ligation - Immunizations Immunizations up to date: Yes Hx Diphtheria, Pertussis, Tetanus Vaccination: Yes Physical Exam - Vital signs Vitals: Temp Pulse Resp BP Pulse Ox 98.9 F 100 18 126/88 H 100 07/21/20 19:03 07/21/20 19:03 07/21/20 19:03 07/21/20 19:03 07/21/20 19:03 Course - Vital Signs Vital signs: Temp Pulse Resp BP Pulse Ox 98.9 F 100 18 126/88 H 100 07/21/20 19:03 07/21/20 19:03 07/21/20 19:03 07/21/20 19:03 07/21/20 19:03 Discharge - Discharge Clinical Impression: Dog bite of left forearm Qualifiers: Encounter type: initial encounter Qualified Code(s): S51.852A - Open bite of left forearm, initial encounter; W54.0XXA - Bitten by dog, initial encounter Puncture wound of forearm Qualifiers: Encounter type: initial encounter Laterality: left Qualified Code(s): S51.832A - Puncture wound without foreign body of left forearm, initial encounter Condition: Stable Disposition: HOME, SELF-CARE Instructions: Laceration Care ([facility]) Additional Instructions: Keep the wound areas clean and dry as possible. Take the medications as prescribed no driving if taking narcotics for pain. Return for increased severe pain to the forearm, redness or discharge from the wound areas, follow-up with orthopedics for further evaluation and treatment call for appointment Prescriptions: Amoxicillin/Potassium Clav [Augmentin 875-125 Tablet] 1 tab PO NOW #14 tablet Hydrocodone/Acetaminophen [[place] 5-325 mg Tablet] 1 tab PO Q4 PRN #15 tablet PRN Reason: Diclofenac Sodium [Voltaren 50 Mg Tablet.] 50 mg PO BID #20 tablet. Referrals: JOHNATHAN GONGORA MD [Primary Care Provider] - Follow up as needed HANNAH HOLLAND MD [ACTIVE STAFF] - Follow up as needed
[2020-07-22 01:51] VITALS: BP 126/82
== END 2020-07-22 00:55 | disposition home or self-care (01) ==
LOC: ER 18:45
DX: S51.832A Puncture wound without foreign body of left forearm, initial encounter (principal); W54.0XXA Bitten by dog, initial encounter
CPT/HCPCS: 99284; 96372; 73090; J1885; J3490

== ENCOUNTER 2020-08-31 23:12 | Emergency (ER) | payer OTHER ==
[2020-08-31] MEDS ORDERED: HYDROCODONE/ACETAMINOPHEN 5-325 MG (6 TAB/ER DISP) PO PRN (23:47)
[2020-08-31] MEDS ORDERED: HYDROCODONE/ACETAMINOPHEN 5-325 MG TABLET PO ONE (23:47)
--- NOTE | 2020-08-31 23:51 | ER Document Report ---
ED Hand/Wrist Injury - General Chief Complaint: Finger Injury Stated Complaint: FINGER INJURY Time Seen by Provider: 08/31/20 23:36 Primary Care Provider: JOHNATHAN GONGORA MD [Primary Care Provider] - Follow up as needed Mode of Arrival: Ambulatory Information source: Patient TRAVEL OUTSIDE OF THE [place] IN LAST 30 DAYS: No - HPI Patient complains to provider of: nail injury Injury to: Middle finger Notes: Patient with complaints of left middle finger nail injury. She has long acrylic nails. She states that she banged it on something and then noticed that she partially avulsed the fingernail. Tetanus is up-to-date. She does complain of moderate pain which is constant. She denies any fever. She denies any nausea, vomiting, diarrhea. No chest pain or shortness of breath. No rash. No abdominal pain. No chest pain or shortness of breath. Pain is worse with move ment and touching the nail, nothing makes it better. No other complaints. - Related Data Allergies/Adverse Reactions: No Known Allergies Allergy (Verified 06/22/20 23:57) Past Medical History - Social History Smoking Status: Never Smoker Frequency of alcohol use: None Drug Abuse: None Family History: Reviewed & Not Pertinent Pulmonary Medical History: Reports: Hx Pneumonia Renal/ Medical History: Reports: Hx Kidney Stones. Denies: Hx Peritoneal Dialysis Past Surgical History: Reports: Hx Tubal Ligation - Immunizations Immunizations up to date: Yes Hx Diphtheria, Pertussis, Tetanus Vaccination: Yes Review of Systems - Review of Systems -: Yes All other systems reviewed and negative Physical Exam - Vital signs Vitals: Temp Pulse BP Pulse Ox 98.7 F 105 H 124/83 98 08/31/20 23:17 08/31/20 23:17 08/31/20 23:17 08/31/20 23:17 - Notes Notes: GENERAL: alert, cooperative, nontoxic, no distress. HEAD: normocephalic, atraumatic EYES: conjunctiva pink without discharge, no external redness or swelling. EARS: no external swelling, no external redness NOSE: atraumatic, no external swelling MOUTH/THROAT: mucous membranes moist and pink NECK: soft, supple, full range of motion, no meningismus. CHEST: no distress, lungs clear and equal throughout. No wheezing, rales, rhonchi. CARDIAC: regular rate and rhythm, no murmur EXTREMITIES: full range of motion of all extremities. No redness, no swelling. Partially avulsed fingernail to the left middle finger. Nail base is still intact. Small amount of oozing but no active bleeding. Mild tenderness to palpation. NEURO: alert and oriented 3, no focal deficits, full range of motion of all extremities. PYSCH: appropriate mood, affect. Patient is cooperative. SKIN: pink, warm, dry, no rash. Course - Re-evaluation Re-evalutation: 08/31/20 23:48 Patient is nontoxic-appearing stable vitals. Here with complaints of partial avulsion to the left middle fingernail. On exam the base of the nail is still in place. At this point I believe the safest and best treatment would be to stabilize the nail in place. I do not have the right tools to cut these fingernails. She states that she will be able to act trim off the excess acrylic nail when she gets home once it stabilized. Patient be given a dose of pain medication here. She will be sent home with pain medication. Follow-up with her doctor for increased pain, fever, redness, drainage, numbness, tingling, weakness, any further concerns. - Vital Signs Vital signs: Temp Pulse Resp BP Pulse Ox 98.7 F 105 H 124/83 98 08/31/20 23:17 08/31/20 23:17 08/31/20 23:17 08/31/20 23:17 - Laboratory Results Critical Laboratory Results Reviewed: No Critical Results - Radiology Results Critical Radiology Results Reviewed: No Critical Results Discharge - Discharge Clinical Impression: Partial avulsion of fingernail Qualifiers: Encounter type: initial encounter Qualified Code(s): S61.309A - Unspecified open wound of unspecified finger with damage to nail, initial encounter Condition: Stable Disposition: HOME, SELF-CARE Instructions: Avulsed Nail ([facility]) Additional Instructions: Keep nail protected. Trim off the excess acrylic. Take medications as prescribed. Follow-up for increasing pain, fever, redness, numbness, tingling, weakness, any further concerns. Referrals: JOHNATHAN GONGORA MD [Primary Care Provider] - Follow up as needed
[2020-09-01 00:42] VITALS: BP 132/72
== END 2020-09-01 00:03 | disposition home or self-care (01) ==
LOC: ER 23:12
DX: S61.303A Unspecified open wound of left middle finger with damage to nail, initial encounter (principal); W22.8XXA Striking against or struck by other objects, initial encounter
CPT/HCPCS: 99284